=== PATIENT | female | born 1955 | race Caucasian/White ===

== ENCOUNTER → 2018-02-01 | Outpatient (CLI) | payer BC ==
[~2018-02-01] MED LIST: AMLODIPINE BESYL5 MG PO; BENICAR HCT 401 EAC1 PO; CRESTOR10 MG PO; CYCLOBENZAPRINE5 MG PO; FOLIC ACID1 MG PO; HUMIRA40 MG/0.1 INJ; LANSOPRAZOLE30 MG PO; METHOTREXATE2.5 MG PO; MONTELUKAST SOD10 MG PO; NABUMETONE500 MG PO; PATADAY2.5 ML OP; PREDNISONE1 MG PO; SULINDAC200 MG PO; TOPROL XL25 MG PO; TOPROL XL50 MG PO; TRIBENZOR 20-51 EACH PO; [UNRECOGNIZED DRUG - OTHER]; flexeril; prevacid PO
== END ==
LOC: RAD 14:10
PROVIDERS: ATTEND Family Medicine
DX: M79.672 Pain in left foot (principal); M25.475 Effusion, left foot; M79.89 Other specified soft tissue disorders
CPT/HCPCS: 93971

== ENCOUNTER → 2019-05-31 | Outpatient (CLI) | payer BC ==
[~2019-05-31] MED LIST changes: +DIOVAN HCT 3201 EACH PO; +LEFLUNOMIDE10 MG PO; +ONDANSETRON HCL4 MG PO; +PANTOPRAZOLE SO40 MG PO; +PIROXICAM20 MG PO; +PREDNISONE10 MG PO; +SPIRONOLACTONE25 MG PO; +ULTRAM50 MG PO
--- NOTE | 2019-05-31 11:14 | Diagnostic Imaging Report ---
Abdominal ultrasound Clinical History: Abdominal pain Discussion: Sonographic evaluation of the the abdomen is performed. The liver has normal size and measures 13.6 cm in length. The liver echotexture is normal, without focal mass. There is no intra or extrahepatic biliary dilatation. The common bile duct measures 3 mm. Echogenic nonshadowing material is seen in the gallbladder without evidence of gallbladder wall thickening, pericholecystic fluid, or sonographic Rehman's sign. The main portal vein diameter is normal, measuring 8 mm. The pancreatic head, body, and proximal tail demonstrate no abnormality. There is no ascites. The right and the left kidney measure 9.4 and 10.5 cm in length respectively and are normal in size. There is no renal mass, hydronephrosis, or shadowing renal calculus. The spleen measures 10.7 cm in length and is normal in echotexture. Segments of the inferior vena cava and aorta visualized demonstrate no abnormality. Impression: 1. Gallbladder sludge without sonographic evidence of acute cholecystitis. Otherwise, unremarkable abdominal ultrasound. Signed by: Dr. Karthikeyan Leung MD on 05/31/2019 11:11 AM
== END ==
LOC: US 07:50
PROVIDERS: ATTEND Family Medicine
DX: R10.11 Right upper quadrant pain (principal); K82.9 Disease of gallbladder, unspecified
CPT/HCPCS: 76700

== ENCOUNTER → 2019-06-22 | Day surgery (SDC) | payer BC ==
[2019-06-18 13:08] LABS: BASOPHILS # (AUTO) 0.1 (0.0-0.1); BASOPHILS % 0.4 % (0.0-1.0); EOSINOPHILS # (AUTO) 0.1 (0.0-0.4); EOSINOPHILS % 0.6 % (0.0-6.0); HEMATOCRIT 45.9 % (34.2-44.1); HEMOGLOBIN 15.3 g/dL (12.0-16.0); LYMPHOCYTES # (AUTO) 4.6 (1.0-3.2); MEAN CORPUSCULAR HEMOGLOBIN 31.1 pg (28-32); MEAN CORPUSCULAR HGB CONC 33.3 g/dL (31-35); MEAN CORPUSCULAR VOLUME 93.3 fL (81-99); MONOCYTES % 12.5 % (4.4-11.3); NEUTROPHILS # (AUTO) 9.5 (2.1-6.9); NEUTROPHILS % 58.1 % (38.7-80.0); PLATELET COUNT 305 x10e3/uL (140-360); RED BLOOD COUNT 4.92 x10e6/uL (3.6-5.1); RED CELL DISTRIBUTION WIDTH 13.9 % (11.7-14.4)
[2019-06-18 13:11] LABS: BILIRUBIN,URINE NEGATIVE (NEGATIVE); CLARITY,URINE SL CLOUDY (CLEAR); COLOR,URINE YELLOW (YELLOW); KETONES,URINE NEGATIVE (NEGATIVE); LEUKOCYTE ESTERASE ,URINE NEGATIVE (NEGATIVE); NITRITE,URINE NEGATIVE (NEGATIVE); PROTEIN,URINE DIPSTICK NEGATIVE (NEGATIVE); URINE UROBILINOGEN 0.2 mg/dL (0.2 - 1)
--- NOTE | 2019-06-18 13:12 | Diagnostic Imaging Report ---
EXAMINATION: CHEST 2 VIEWS INDICATION: Pre-operative COMPARISON: Chest radiograph of 12/28/2016 FINDINGS: LINES/TUBES:None LUNGS:The lungs are well-inflated. No focal consolidation or pulmonary edema. Subcentimeter right apical calcified granuloma, unchanged from 2017. PLEURA:No pleural effusion or pneumothorax. MEDIASTINUM:The cardiomediastinal silhouette appears normal in size and shape. BONES/SOFT TISSUES:No acute osseous injury. Mild degenerative changes of the visualized spine. ABDOMEN:No free air under the diaphragm. IMPRESSION: No focal pneumonia or pulmonary edema. Signed by: Jacques Adler MD on 06/18/2019 1:09 PM
[2019-06-18 13:32] LABS: ALBUMIN/GLOBULIN RATIO 1.3 (0.8-2.0); ANION GAP 16.1 mmol/L (8-16); CALCIUM 10.7 mg/dL (8.4-10.2); CREATININE, SERUM 1.06 mg/dL (0.57-1.11); POTASSIUM 3.1 mmol/L (3.5-5.1)
[~2019-06-22] MED LIST changes: +ACETAMINOPHEN 1000 MG/100 ML 100 ML IV ONE; +BUPIVACAINE 0.25%/EPI 30ML SDV INJ ONE; +DESFLURANE 240 ML BTL INH ONE; +DEXAMETHASONE SOD PHOS INJ 4 MG/ML VIAL ONE; +FENTANYL CITRATE/PF 100MCG/2 ML INJ ONE; +GLYCOPYRROLATE INJ 1MG/ 5 ML SYR ONE; +HYDROCODONE/APAP 7.5MG-325MG 1 EA TAB ONE; +KETOROLAC TROMETHAMINE 30 MG/ML VIAL ONE; +LIDOCAINE HCL 2% LOCAL INJ 5 ML SDV VIAL INJ ONE; +MEPERIDINE HCL INJ 25 MG/ML VIAL ONE; +MIDAZOLAM HCL 2 MG/2 ML VIAL ONE; +NEOSTIGMINE 5 MG/5ML SYR ONE; +ONDANSETRON HCL INJ 2MG/ML 2ML 2 MG/ML VIAL ONE; +PROPOFOL IV EMULSION 10 MG/ML 20 ML VIAL ONE; +SCOPOLAMINE 1.5 MG PATCH ONE
--- OUTSIDE RECORDS SUMMARY | 2019-06-22 08:28 | XMS REPORT ---
Author Author [facility] Address Unknown Phone Unavailable Care Team Providers Care [employer] Name Role Phone Refugio SAHNI Unavailable Unavailable STEPHAN NGUYEN Unavailable Unavailable Problems This patient has no known problems. Allergies, Adverse Reactions, Alerts This patient has no known allergies or adverse reactions. Medications This patient has no known medications. Results Test Description Test Time Test Comments Text Results Atomic Results Result Comments CHEST 2 VIEWS 2019-06-18 13:07:00 [facility] [address] [place] [address] Patient Name: KAITLIN FRASER MR #: [id number] : 1955 Age/Sex: 63/F Req #: [id number] Adm Physician: Ordered by: ELLA SAHNI MD Report #: [id number] Location: OR Room/Bed: Procedure: [id number] DX/CHEST 2 VIEWS Exam Date: Exam Time: REPORT STATUS: Signed EXAMINATION: CHEST 2 VIEWS INDICATION: Pre-operative COMPARISON: Chest radiograph of 12/28/2016 FINDINGS: LINES/TUBES:None LUNGS:The lungs are well-inflated. No focal consolidation or pulmonary edema. Subcentimeter right apical calcified granuloma, unchanged from 2017. PLEURA:No pleural effusion or pneumothorax. MEDIASTINUM:The cardiomediastinal silhouette appears normal in size and shape. BONES/SOFT TISSUES:No acute osseous injury. Mild degenerative changes of the visualized spine. ABDOMEN:No free air under the diaphragm. IMPRESSION: No focal pneumonia or pulmonary edema. Signed by: Tatiana Stock MD on 06/18/2019 1:09 PM Dictated By: TATIANA STOCK MD 130 Transcribed By: YESY on 06/18/19 130 COPY TO: ELLA SAHNI MD US ABDOMEN COMPLETE 2019-05-31 11:09:00 [place] [address] Patient Name: KAITLIN FRASER MR #: [id number] : 1955 Age/Sex: 63/F Req #: [id number] Adm Physician: Ordered by: NGUYNE ANDREW DO Report #: [id number] Location: Room/Bed: Procedure: [id number] US/US ABDOMEN COMPLETE Exam Date: 05/31/19 Exam Time: 0841 REPORT STATUS: Signed Abdominal ultrasound Clinical History: Abdominal pain Discussion: Sonographic evaluation of the the abdomen is performed. The liver has normal size and measures 13.6 cm in length. The liver echotexture is normal, without focal mass. There is no intra or extrahepatic biliary dilatation. The common bile duct measures 3 mm. Echogenic nonshadowing material is seen in the gallbladder without evidence of gallbladder wall thickening, pericholecystic fluid, or sonographic Rehman's sign. The main portal vein diameter is normal, measuring 8 mm. The pancreatic head, body, and proximal tail demonstrate no abnormality. There is no ascites. The right and the left kidney measure 9.4 and 10.5 cm in length respectively and are normal in size. There is no renal mass, hydronephrosis, or shadowing renal calculus. The spleen measures 10.7 cm in length and is normal in echotexture. Segments of the inferior vena cava and aorta visualized demonstrate no abnormality. Impression: 1. Gallbladder sludge without sonographic evidence of acute cholecystitis. Otherwise, unremarkable abdominal ultrasound. Signed by: Dr. Karthikeyan Leung MD on 05/31/2019 11:11 AM Dictated By: MALIA LEUNG MD 1111 Transcribed By: YESY on 05/31/19 1111 COPY TO: STEPHAN NGUYEN DO
[2019-06-22 14:15] VITALS: BP 105/60
--- NOTE | 2019-06-22 19:44 | Operative Report ---
DATE OF PROCEDURE: 06/22/2019 SURGEON: Wilfrid Salinas MD PREOPERATIVE DIAGNOSES: Cholecystitis and cholelithiasis plus epigastric pain, rule out peptic ulcer disease. POSTOPERATIVE DIAGNOSES: Cholecystitis, cholelithiasis, gastritis, and mild gastroesophageal reflux disease. OPERATION PERFORMED: Laparoscopic cholecystectomy and EGD. ANESTHESIA: General. COMPLICATIONS: None. ESTIMATED BLOOD LOSS: Minimal. DESCRIPTION OF PROCEDURE: With the patient lying in bed in the supine position, under good general endotracheal anesthesia, the abdomen was prepped with Betadine solution and draped in the usual manner. A Veress needle was introduced into the umbilicus and pneumoperitoneum was established without any difficulty. An 11 mm trocar was placed into the umbilicus and a 10 mm video laparoscope was placed into the intraabdominal cavity. Under direct vision, three 5 mm trocars were placed in the right subcostal region. Video laparoscopy at this point revealed some mild fatty infiltration of the liver and a gallbladder that was somewhat boggy and distended. Otherwise, the rest of the abdominal exploration was within normal limits. The peritoneum overlying the neck of the gallbladder was then opened and the cystic duct was identified. The cystic duct was followed to its junction with the common duct. The cystic duct was then circumferentially dissected away from the common duct, doubly clipped and divided. The cystic artery had an anterior and a posterior branch and both of these were individually clipped and divided. The gallbladder was then slowly and carefully taken off the liver bed using the cautery scissors and perfect hemostasis was ascertained. The gallbladder was then grasped through the umbilical port and removed without any difficulty. Video laparoscopy was then again carried out. The liver bed was found to be perfectly dry. All of the excess fluid was aspirated. The pneumoperitoneum was evacuated and all the trocars were removed under direct vision. The midline fascia at the umbilicus was then closed with a [id number] of 0 Vicryl. All layers were infiltrated on the way out with solution of 0.25% Marcaine. Subcutaneous tissue was approximated with 3-0 Vicryl and the skin was closed with subcuticular 5-0 Vicryl. Benzoin, Steri-Strips, and Band-Aids were applied. The sponge, lap, and needle count was correct. The patient tolerated this part of the procedure well. The flexible Olympus gastroscope was then introduced into the back of the throat and slowly and carefully advanced down the esophagus. In the lower part of the esophagus, there was some inflammatory changes consistent with some mild gastroesophageal reflux disease. There was no ulcerations or any sign of any Riley's mucosal changes. The stomach was then entered and insufflated. The entire stomach showed some linear gastritis that encompass the entire stomach. There was no definite ulcerations present. This is all an inflammatory process. The pylorus was then entered and the duodenum was inspected all the way down to the 3rd portion and the duodenum was found to be within normal limits. The scope was then slowly and carefully withdrawn. The patient tolerated the procedures well and returned to the recovery room in stable condition. MD YOVANI Ken/JEFF /[id number]
== END | disposition home or self-care (01) ==
LOC: OR 08:25
PROVIDERS: ATTEND Surgery
DX: K80.10 Calculus of gallbladder with chronic cholecystitis without obstruction (principal); K29.70 Gastritis, unspecified, without bleeding; K21.9 Gastro-esophageal reflux disease without esophagitis; K76.0 Fatty (change of) liver, not elsewhere classified; M06.9 Rheumatoid arthritis, unspecified; I10 Essential (primary) hypertension; Z88.6 Allergy status to analgesic agent; Z01.810 Encounter for preprocedural cardiovascular examination; Z01.812 Encounter for preprocedural laboratory examination; Z01.818 Encounter for other preprocedural examination; Z87.891 Personal history of nicotine dependence
CPT/HCPCS: 36415 ×2; 43235; 47562; 71046; 80053; 81003; 84132; 85025; 88304; 93005; C1766; J0131; J1100; J1885; J2001; J2175; J2250; J2405; J2704; J3010; J3490

== ENCOUNTER → 2019-11-06 | Day surgery (SDC) | payer BC ==
[2019-11-05 16:23] LABS: ANION GAP 17.4 mmol/L (8-16); BLOOD UREA NITROGEN 25 mg/dL (7-26); BUN/CREATININE RATIO 30 (6-25); CALCIUM 9.4 mg/dL (8.4-10.2); CARBON DIOXIDE 23 mmol/L (22-29); CHLORIDE 102 mmol/L (98-107); CREATININE, SERUM 0.84 mg/dL (0.57-1.11); EST GLOMERULAR FILTRATION RATE > 60 ML/MIN (60-); GLUCOSE 113 mg/dL (74-118); POTASSIUM 3.4 mmol/L (3.5-5.1); SODIUM 139 mmol/L (136-145)
[~2019-11-06] MED LIST changes: -ACETAMINOPHEN 1000 MG/100 ML 100 ML IV ONE; +ACETAMINOPHEN 1000 MG/100 ML IV ONE; +BACITRACIN 50,000 UNIT VIAL ONE; -BUPIVACAINE 0.25%/EPI 30ML SDV INJ ONE; +BUPIVACAINE HCL 0.5% INJ 30 ML VIAL INJ ONE; +CEFAZOLIN SOD 1 GM/NS 50ML 50 ML IV ONE; -DESFLURANE 240 ML BTL INH ONE; -GLYCOPYRROLATE INJ 1MG/ 5 ML SYR ONE; -HYDROCODONE/APAP 7.5MG-325MG 1 EA TAB ONE; -KETOROLAC TROMETHAMINE 30 MG/ML VIAL ONE; -LIDOCAINE HCL 2% LOCAL INJ 5 ML SDV VIAL INJ ONE; -MEPERIDINE HCL INJ 25 MG/ML VIAL ONE; -NEOSTIGMINE 5 MG/5ML SYR ONE; -PROPOFOL IV EMULSION 10 MG/ML 20 ML VIAL ONE; -SCOPOLAMINE 1.5 MG PATCH ONE; +SEVOFLURANE INHAL SOLN 250 ML PEN BTL ONE
--- NOTE | 2019-11-06 07:10 | NUR ---
SPIRITUAL CARE - Pre-Surgery Assessment: Pt in bed. Pt reported supportive attention from family and friends. Intervention: I provided pastoral presence, hospitality, sympathetic listening, and prayer. I acquainted pt with availability of terrazzo polisher while hospitalized. Outcome: Pt expressed appreciation for visit. No need for follow up indicated at this time. DELBERT Ericksonlain Spiritual Care Department O: [phone] Pager: [phone] ([phone] number calling from)
[2019-11-06 09:15] VITALS: BP 146/82
--- NOTE | 2019-11-08 13:29 | Operative Report ---
DATE OF PROCEDURE: 11/06/2019 SURGEON: Virginie Cabrera DPM PREOPERATIVE DIAGNOSIS: Right 2nd metatarsal fracture. POSTOPERATIVE DIAGNOSIS: Right 2nd metatarsal fracture. PLANNED PROCEDURE: Right open reduction and internal fixation of right 2nd metatarsal fracture. SURGEON: Dr. Usama DPM. HUNTING GUIDE: Virginie Cabrera DPM ANESTHESIA: General with a postoperative block consisting of 15 mL of 0.5% Marcaine plain. HEMOSTASIS: Pneumatic thigh tourniquet set at 350 mmHg for a total time of approximately 30 minutes. MATERIALS: One Synthes 4-hole plate, four nonlocking screws measuring 12 and 14 mm, 2-0 Vicryl, 3-0 Vicryl, and 4-0 Prolene. ESTIMATED BLOOD LOSS: Less than 10 mL. PATHOLOGY: None. PROCEDURE NOTE: The patient was seen in the preoperative waiting room, where the correct procedure and site was identified. The patient was brought into the operating room and placed on the operating table in supine position. General anesthesia was initiated. At this time, a well-padded pneumatic tourniquet was placed about the patient's right thigh. The right foot, ankle, and leg was scrubbed, prepped, and draped in the usual aseptic manner. The right foot, ankle, and leg was exsanguinated with an Esmarch bandage. A pneumatic thigh tourniquet was inflated to 350 mmHg for a total of approximately 30 minutes. Attention was directed to the dorsal aspect of the patient's right foot, where a 4 cm linear incision made directly over the 2nd metatarsophalangeal joint extending to the level of the midshaft. The incision was carried to the subcutaneous tissue them from deep or underling structures. All vital and neurovascular structures were identified, retracted medially and laterally, and all bleeders were cauterized or ligated as deemed necessary. Next, attention was directed to the neck of the 2nd metatarsal, where a bony callus formation was noted. Utilizing a rongeur, an osteotome and mallet, the bony callus was excised to allow for good visualization of the fracture site. Utilizing techniques of manipulation and distraction, the metatarsal fracture was reduced and temporarily fixated with olive wires into the 4-hole Synthes nonlocking plate and confirmed via intraoperative fluoroscopy. Next, utilizing techniques of AO fixation, drill holes were placed in each of the four holes of the plate, two proximal to the fracture site and two distal to the fracture site, and four screws measured between 12 and 14 mm were placed. Fixation site was stable. This was confirmed via intraoperative fluoroscopy. The incision site was then copiously irrigated with sterile saline. Capsule and deep tissue were reapproximated with 2-0 Vicryl, subcutaneous tissue with 3-0 Vicryl, and the skin was closed using a running interlocking stitch with 4-0 Prolene. The patient tolerated the procedure and anesthesia well. The patient was transferred to the postoperative recovery unit with vital signs stable and vascular status intact. The patient was monitored there for a short period of time before being sent home with the following written and oral instructions: 1. Keep the dressing clean, dry, and intact. 2. The patient is to remain nonweightbearing in a postop shoe to avoid any ambulation until being seen in the office. 3. The patient is given the office number and instructed to contact us if any problems arise. NICOLETTE Bustillo/JEFF /[id number]
== END | disposition home or self-care (01) ==
LOC: OR 05:40
PROVIDERS: ATTEND Podiatrist Foot & Ankle Surgery
DX: S92.321A Displaced fracture of second metatarsal bone, right foot, initial encounter for closed fracture (principal); M19.90 Unspecified osteoarthritis, unspecified site; I10 Essential (primary) hypertension; M54.9 Dorsalgia, unspecified; E78.5 Hyperlipidemia, unspecified; K21.9 Gastro-esophageal reflux disease without esophagitis; Z88.6 Allergy status to analgesic agent; Z01.810 Encounter for preprocedural cardiovascular examination; Z01.812 Encounter for preprocedural laboratory examination
CPT/HCPCS: 28485; 36415; 80048; 93005; C1713 ×4; J0131; J0690; J1100; J2250; J2405; J3010

== ENCOUNTER → 2020-03-26 | Outpatient (CLI) | payer BC ==
[~2020-03-26] MED LIST changes: -ACETAMINOPHEN 1000 MG/100 ML IV ONE; -BACITRACIN 50,000 UNIT VIAL ONE; -BUPIVACAINE HCL 0.5% INJ 30 ML VIAL INJ ONE; -CEFAZOLIN SOD 1 GM/NS 50ML 50 ML IV ONE; -DEXAMETHASONE SOD PHOS INJ 4 MG/ML VIAL ONE; -FENTANYL CITRATE/PF 100MCG/2 ML INJ ONE; -MIDAZOLAM HCL 2 MG/2 ML VIAL ONE; -ONDANSETRON HCL INJ 2MG/ML 2ML 2 MG/ML VIAL ONE; -SEVOFLURANE INHAL SOLN 250 ML PEN BTL ONE
== END ==
LOC: WCC 14:57
PROVIDERS: ATTEND Family Medicine Adult Medicine
DX: T81.89XA Other complications of procedures, not elsewhere classified, initial encounter (principal); M96.89 Other intraoperative and postprocedural complications and disorders of the musculoskeletal system; I82.491 Acute embolism and thrombosis of other specified deep vein of right lower extremity; I87.2 Venous insufficiency (chronic) (peripheral); R60.0 Localized edema; I10 Essential (primary) hypertension; M19.90 Unspecified osteoarthritis, unspecified site; M06.9 Rheumatoid arthritis, unspecified; K21.9 Gastro-esophageal reflux disease without esophagitis; E78.5 Hyperlipidemia, unspecified; M54.9 Dorsalgia, unspecified

== ENCOUNTER → 2020-03-28 | Outpatient (CLI) | payer BC ==
--- NOTE | 2020-03-28 11:33 | Diagnostic Imaging Report ---
EXAMINATION: FOOT RIGHT COMPLETE INDICATION: Right foot wound COMPARISON: None FINDINGS: Postoperative findings of ORIF of the distal second metatarsal with intact plate and screw construct. Alignment appears near-anatomic. No acute fracture or dislocation. Plantar calcaneal spur. The soft tissues appear radiographically unremarkable. IMPRESSION: Postoperative findings of ORIF of distal second metatarsal. No acute osseous injury. Signed by: Jacques Adler MD on 03/28/2020 11:30 AM
[2020-03-28 11:51] LABS: BASOPHILS # (AUTO) 0.1 (0.0-0.1); BASOPHILS % 0.4 % (0.0-1.0); EOSINOPHILS % 0.1 % (0.0-6.0); HEMOGLOBIN 13.7 g/dL (12.0-16.0); LYMPHOCYTES # (AUTO) 1.2 (1.0-3.2); LYMPHOCYTES % 10.4 % (18.0-39.1); MEAN CORPUSCULAR HEMOGLOBIN 30.7 pg (28-32); MEAN CORPUSCULAR HGB CONC 32.6 g/dL (31-35); MEAN CORPUSCULAR VOLUME 94.2 fL (81-99); MONOCYTES # (AUTO) 0.7 (0.2-0.8); MONOCYTES % 6.2 % (4.4-11.3); NEUTROPHILS # (AUTO) 9.8 (2.1-6.9); NEUTROPHILS % 82.1 % (38.7-80.0); PLATELET COUNT 288 x10e3/uL (140-360); RED BLOOD COUNT 4.46 x10e6/uL (3.6-5.1); RED CELL DISTRIBUTION WIDTH 13.8 % (11.7-14.4)
[2020-03-28 12:18] LABS: ALBUMIN 3.6 g/dL (3.5-5.0); ALBUMIN/GLOBULIN RATIO 1.3 (0.8-2.0); ANION GAP 13.5 mmol/L (8-16); CALCIUM 9.8 mg/dL (8.4-10.2); CREATININE, SERUM 0.96 mg/dL (0.57-1.11); POTASSIUM 3.5 mmol/L (3.5-5.1)
[2020-03-28 12:29] LABS: ERYTHROCYTE SEDIMENTATION RATE 11 mm/hr (0-20)
== END ==
LOC: RAD 10:48
PROVIDERS: ATTEND Family Medicine Adult Medicine
DX: T81.89XA Other complications of procedures, not elsewhere classified, initial encounter (principal)
CPT/HCPCS: 36415; 80053; 84134; 85025; 85651; 86140

== ENCOUNTER → 2020-04-03 | Outpatient (CLI) | payer BC | LOC: WCC 11:10 | PROVIDERS: ATTEND Family Medicine Adult Medicine | DX: T81.89XA Other complications of procedures, not elsewhere classified, initial encounter (principal); M96.89 Other intraoperative and postprocedural complications and disorders of the musculoskeletal system; I82.491 Acute embolism and thrombosis of other specified deep vein of right lower extremity; R60.0 Localized edema; I87.2 Venous insufficiency (chronic) (peripheral); I10 Essential (primary) hypertension; E78.5 Hyperlipidemia, unspecified; K21.9 Gastro-esophageal reflux disease without esophagitis; M06.9 Rheumatoid arthritis, unspecified; M19.90 Unspecified osteoarthritis, unspecified site; M54.9 Dorsalgia, unspecified | CPT/HCPCS: 87071; 87075; 87186; 87205 ==

== ENCOUNTER → 2020-04-10 | Outpatient (CLI) | payer BC | LOC: WCC 12:36 | PROVIDERS: ATTEND Family Medicine Adult Medicine | DX: T81.89XA Other complications of procedures, not elsewhere classified, initial encounter (principal); M96.89 Other intraoperative and postprocedural complications and disorders of the musculoskeletal system; I82.491 Acute embolism and thrombosis of other specified deep vein of right lower extremity; I87.2 Venous insufficiency (chronic) (peripheral); R60.0 Localized edema; B96.89 Other specified bacterial agents as the cause of diseases classified elsewhere; I10 Essential (primary) hypertension; K21.9 Gastro-esophageal reflux disease without esophagitis; M06.9 Rheumatoid arthritis, unspecified; E78.5 Hyperlipidemia, unspecified; M19.90 Unspecified osteoarthritis, unspecified site; M54.9 Dorsalgia, unspecified ==

== ENCOUNTER → 2020-04-14 | Outpatient (CLI) | payer BC | LOC: WCC 14:15 | PROVIDERS: ATTEND Family Medicine Adult Medicine | DX: T81.89XA Other complications of procedures, not elsewhere classified, initial encounter (principal); M96.89 Other intraoperative and postprocedural complications and disorders of the musculoskeletal system; I82.491 Acute embolism and thrombosis of other specified deep vein of right lower extremity; I87.2 Venous insufficiency (chronic) (peripheral); R60.0 Localized edema; I10 Essential (primary) hypertension; B96.89 Other specified bacterial agents as the cause of diseases classified elsewhere; M54.9 Dorsalgia, unspecified; M19.90 Unspecified osteoarthritis, unspecified site; M06.9 Rheumatoid arthritis, unspecified; K21.9 Gastro-esophageal reflux disease without esophagitis; E78.5 Hyperlipidemia, unspecified ==

== ENCOUNTER → 2020-04-17 | Outpatient (CLI) | payer BC | LOC: WCC 10:50 | PROVIDERS: ATTEND Family Medicine Adult Medicine | DX: T81.89XA Other complications of procedures, not elsewhere classified, initial encounter (principal); M96.89 Other intraoperative and postprocedural complications and disorders of the musculoskeletal system; I82.491 Acute embolism and thrombosis of other specified deep vein of right lower extremity; I87.2 Venous insufficiency (chronic) (peripheral); R60.0 Localized edema; I10 Essential (primary) hypertension; B96.89 Other specified bacterial agents as the cause of diseases classified elsewhere; E78.5 Hyperlipidemia, unspecified; M06.9 Rheumatoid arthritis, unspecified; K21.9 Gastro-esophageal reflux disease without esophagitis; M19.90 Unspecified osteoarthritis, unspecified site; M54.9 Dorsalgia, unspecified ==

== ENCOUNTER → 2020-05-01 | Outpatient (CLI) | payer BC | LOC: WCC 11:15 | PROVIDERS: ATTEND Family Medicine Adult Medicine | DX: T81.89XA Other complications of procedures, not elsewhere classified, initial encounter (principal); M96.89 Other intraoperative and postprocedural complications and disorders of the musculoskeletal system; I82.491 Acute embolism and thrombosis of other specified deep vein of right lower extremity; I87.2 Venous insufficiency (chronic) (peripheral); R60.0 Localized edema; I10 Essential (primary) hypertension; B96.89 Other specified bacterial agents as the cause of diseases classified elsewhere; E78.5 Hyperlipidemia, unspecified; M06.9 Rheumatoid arthritis, unspecified; K21.9 Gastro-esophageal reflux disease without esophagitis; M19.90 Unspecified osteoarthritis, unspecified site; M54.9 Dorsalgia, unspecified | CPT/HCPCS: 15275; 99213; Q4186 ==

== ENCOUNTER → 2020-05-13 | Outpatient (CLI) | payer BC | LOC: WCC 14:50 | PROVIDERS: ATTEND Family Medicine Adult Medicine | DX: T81.89XA Other complications of procedures, not elsewhere classified, initial encounter (principal); M96.89 Other intraoperative and postprocedural complications and disorders of the musculoskeletal system; I82.491 Acute embolism and thrombosis of other specified deep vein of right lower extremity; I87.2 Venous insufficiency (chronic) (peripheral); R60.0 Localized edema; I10 Essential (primary) hypertension; K21.9 Gastro-esophageal reflux disease without esophagitis; E78.5 Hyperlipidemia, unspecified; M06.9 Rheumatoid arthritis, unspecified; M19.90 Unspecified osteoarthritis, unspecified site; M54.9 Dorsalgia, unspecified ==

== ENCOUNTER → 2020-06-05 | Outpatient (CLI) | payer BC ==
--- NOTE | 2020-06-05 13:07 | Diagnostic Imaging Report ---
Exam: Lumbar spine MRI without IV contrast History: Low back pain Comparison studies: None Technique: Sagittal, axial coronal T2, sagittal T1, sagittal STIR, axial T2 FS and axially proton density.. Intravenous contrast: None Findings: Number of lumbar vertebral bodies: 5. Alignment: Normal lumbar lordosis. Mild lumbar levocurvature centered at L3-L4 as well as minimal Grade 1 degenerative anterolisthesis of L3 on L4 as well as left lateral listhesis of L3 on L4. Soft tissues: No T2 hyperintense inflammatory changes. Dorsal paraspinal muscles: Symmetric fatty-replaced atrophic changes with moderate atrophy of the lumbosacral junction Lower thoracic cord: Normal in signal and morphology. The tip of the conus is at 2. Cauda equina: No masses. No arachnoiditis. Vertebrae: No compression fractures, infection or neoplasm. Degenerative changes: L1-L2: Mildly degenerated disc. Patent canal and foramina. L2-L3: Mildly degenerated disc. Patent canal and foramina. L3-L4: Severely degenerated disc, greater on the right along the concavity of lumbar curvature with associated degenerative endplate changes with mild endplate edema. Grade 1 anterolisthesis of L3 on L4 with associated uncovered disc/disc bulge, superimposed 18 mm x 10 mm by 16mm (SI x AP x TV) left central disc extrusion which has migrated craniad posterior to the L3 vertebral body, thickened ligamentum flavum and bilateral facet arthrosis contribute to severe canal stenosis, severe right foraminal stenosis and mild left foraminal stenosis. Disc herniation abuts the exiting left L3 nerve root. L4-L5: Mildly degenerated disc. Asymmetric left disc bulge and facet arthrosis result in moderate left and mild right foraminal stenosis. No significant canal stenosis. L5-S1: Mildly degenerated disc. Asymmetric right disc bulge and facet arthrosis result in mild right foraminal stenosis. Patent canal and left foramen. IMPRESSION: 1. Multilevel disc degeneration, worse/severe at L3-L4 asymmetrically greater on the right along the concavity lumbar levocurvature. 2. Severe degenerative canal stenosis at L3-L4 where there is a large disc extrusion which also abuts the left L3 nerve root. 3. Foraminal stenosis, severe right L3-L4 moderate left at L4-5. 4. Multilevel facet arthrosis Signed by: Dr. Christopher Mills M.D. on 06/05/2020 1:04 PM
== END ==
LOC: MRI 09:38
PROVIDERS: ATTEND Internal Medicine Rheumatology
DX: M54.5 Low back pain (principal)
CPT/HCPCS: 72148

== ENCOUNTER → 2020-06-05 | Outpatient (CLI) | payer BC ==
[~2020-06-05] MED LIST changes: +LIDOCAINE/PRILOCAINE 2.5-2.5% KIT ONE; +TIZANIDINE HCL4 MG PO; +TRIAMCINOLONE ACET 0.1% CREAM 15 GM TUBE ONE; +XARELTO20 MG PO
== END ==
LOC: WCC 01:00
PROVIDERS: ATTEND Family Medicine Adult Medicine
DX: T81.89XA Other complications of procedures, not elsewhere classified, initial encounter (principal); M96.89 Other intraoperative and postprocedural complications and disorders of the musculoskeletal system; I82.491 Acute embolism and thrombosis of other specified deep vein of right lower extremity; R60.0 Localized edema; I87.2 Venous insufficiency (chronic) (peripheral); I10 Essential (primary) hypertension; M54.9 Dorsalgia, unspecified; M19.90 Unspecified osteoarthritis, unspecified site; M06.9 Rheumatoid arthritis, unspecified; K21.9 Gastro-esophageal reflux disease without esophagitis; E78.5 Hyperlipidemia, unspecified
CPT/HCPCS: 15275; 99213; Q4186

== ENCOUNTER → 2020-06-12 | Outpatient (CLI) | payer BC ==
[~2020-06-12] MED LIST changes: -LIDOCAINE/PRILOCAINE 2.5-2.5% KIT ONE; -TIZANIDINE HCL4 MG PO; -TRIAMCINOLONE ACET 0.1% CREAM 15 GM TUBE ONE; -XARELTO20 MG PO
== END ==
LOC: WCC 06-11 15:51
PROVIDERS: ATTEND Family Medicine Adult Medicine
DX: T81.89XA Other complications of procedures, not elsewhere classified, initial encounter (principal); M96.89 Other intraoperative and postprocedural complications and disorders of the musculoskeletal system; I82.491 Acute embolism and thrombosis of other specified deep vein of right lower extremity; R60.0 Localized edema; I87.2 Venous insufficiency (chronic) (peripheral); I10 Essential (primary) hypertension; E78.5 Hyperlipidemia, unspecified; M06.9 Rheumatoid arthritis, unspecified; K21.9 Gastro-esophageal reflux disease without esophagitis; M19.90 Unspecified osteoarthritis, unspecified site; M54.9 Dorsalgia, unspecified

== ENCOUNTER 2020-06-19 06:41 | Observation (INO) | payer BC, OTHER ==
--- NOTE | 2020-06-17 12:12 | Diagnostic Imaging Report ---
Exam: CHEST 2 VIEWS Date: 06/17/2020 12:05 PM INDICATION: ^[id number] ^[id number] ^PRE OP Comparison: 06/18/2019 FINDINGS: Lines/Tubes:None Lungs:The lungs are well inflated. No focal consolidation or pulmonary edema. There is a ill-defined nodular opacity in the periphery of the right upper lobe measuring approximately 2.1 x 1.2 cm, superimposed on the scapula. No correlation on the lateral view is identified. Pleura:No pleural effusion. No pneumothorax. Heart/Mediastinum:The cardiomediastinal silhouette is normal in size and contour. Bones/Soft Tissues: No acute osseous abnormality. Mild multilevel degenerative changes of the spine are noted. Upper abdomen: Unremarkable. IMPRESSION: 1. Negative for focal consolidation or evidence of pulmonary edema. 2. Nodular 2.1 cm density projecting in the right upper lobe laterally overlying the scapula probably relate to superimposed soft tissues, especially since no correlate is identified on lateral view. Finding was not present on x-ray dated 06/18/2019. If there is high clinical suspicion consider follow-up nonemergent radiographs versus cross-sectional imaging. Signed by: Reid De La Fuente MD on 06/17/2020 12:08 PM
[~2020-06-19] VITALS: Ht 162.6 cm; Wt 99.8 kg
[~2020-06-19 06:41] MED LIST changes: +TIZANIDINE HCL4 MG PO; +XARELTO20 MG PO
[2020-06-19] MEDS ORDERED: LIDOCAINE HCL (LTA) 4 ML SOLN ONE (07:12)
[2020-06-19] MEDS ORDERED: IBUPROFEN 800MG/ 200ML 200 ML IV ONE (07:12)
[2020-06-19] MEDS ORDERED: VANCOMYCIN 1GM/NS 250 ML 250 ML ONE (07:36)
[2020-06-19 08:26] LABS: INR 0.84; PROTHROMBIN TIME 11.9 seconds (11.9-14.5)
[2020-06-19] MEDS ORDERED: SCOPOLAMINE 1.5 MG PATCH ONE ×2 (08:47)
[2020-06-19] MEDS ORDERED: ACETAMINOPHEN 1000 MG/100 ML 100 ML IV ONE (08:50)
[2020-06-19] MEDS ORDERED: PROPOFOL IV EMULSION 100 ML IV ONE (08:51)
[2020-06-19 09:09] LABS: PARTIAL THROMBOPLASTIN TIME 17.1 seconds (23.8-35.5)
[2020-06-19] MEDS ORDERED: ACETAMINOPHEN 325 MG TAB PO PRN (10:15)
[2020-06-19] MEDS ORDERED: MORPHINE SULFATE 5 MG/ML VIAL IM PRN (10:15)
[2020-06-19] MEDS ORDERED: MAGNESIUM/ALUMINUM/SIMETHICONE 30 ML UDC PO PRN (10:15)
[2020-06-19] MEDS ORDERED: LACTATED RINGER'S 1,000 ML IV SCH (10:15)
[2020-06-19] MEDS ORDERED: TIZANIDINE HCL 4 MG TAB PO PRN (10:15)
[2020-06-19] MEDS ORDERED: PROMETHAZINE HCL (IM) 25 MG/ML VIAL IM PRN (10:15)
[2020-06-19] MEDS ORDERED: HYDROMORPHONE 2MG/ML 2 MG/ML ML IV PRN (10:15)
[2020-06-19] MEDS ORDERED: FENTANYL CITRATE/PF 100MCG/2 ML INJ ONE ×2 (10:34→12:40)
[2020-06-19 11:50] VITALS: BP 118/87
[2020-06-19 11:59] VITALS: BP 118/87
[2020-06-19 12:00] VITALS: BP 118/87
[2020-06-19] MEDS ORDERED: ROCURONIUM BROMIDE 10 MG/ML 5ML VIAL IV ONE (12:34)
[2020-06-19] MEDS ORDERED: PROPOFOL IV EMULSION 10 MG/ML 20 ML VIAL ONE (12:34)
[2020-06-19] MEDS ORDERED: DEXAMETHASONE SOD PHOS INJ 4 MG/ML VIAL ONE (12:34)
[2020-06-19] MEDS ORDERED: PHENYLEPHRINE HCL 1% 10 MG/ML VIAL ONE (12:34)
[2020-06-19] MEDS ORDERED: LIDOCAINE HCL 2% LOCAL INJ 5 ML SDV VIAL INJ ONE (12:34)
[2020-06-19] MEDS ORDERED: ONDANSETRON HCL INJ 2MG/ML 2ML 2 MG/ML VIAL ONE (12:34)
[2020-06-19] MEDS ORDERED: MIDAZOLAM HCL 2 MG/2 ML VIAL ONE (12:40)
--- NOTE | 2020-06-19 13:56 | Operative Report ---
DATE OF PROCEDURE: 06/19/2020 SURGEON: Mario Alberto Mcmahan MD PREOPERATIVE DIAGNOSES: Left L3-4 disk herniation with superior migration of extruded disk fragment and severe radiculopathy, M51.16. POSTOPERATIVE DIAGNOSES: Left L3-4 disk herniation with superior migration of extruded disk fragment and severe radiculopathy, M51.16. PROCEDURE: Left L3-4 laminotomy, medial facetectomy, and microsurgical resection of extruded disk fragment, [id number]. ANESTHESIA: General. INDICATIONS: The patient is a 64-year-old woman who presents with a very large left L3-4 disk herniation with superior migration of the extruded disk fragment towards L2 nerve root. There is complete collapse of the L3-4 disk space. She was taken to surgery for microsurgical decompression. PROCEDURE IN DETAIL: After induction of general anesthesia, the patient was placed on the operating table in prone position over Adan frame. Lumbar region was prepped and draped in sterile fashion. A preoperative x-ray was obtained. A small midline incision was created. Lumbar fascia was opened in left of midline and a subperiosteal dissection was carried out to expose the left-sided L3 and L4 lamina and medial aspect of the facet joint. The operating microscope was brought in. A high-speed drill equipped with marguerite bur was used to drill the inferior 2/3rd of lamina of L3 and the medial rim of the L3-L4 facet joint. The ligamentum flavum was resected and dural sac and L4 traversing nerve roots were exposed. The epidural veins lateral to the nerve root were bipolar coagulated and divided with micro scissors. The dura was slightly displaced medially. The underlying disk herniation came into view. A ball probe was passed into the ventral epidural space and the edge of the extruded disk material was retrieved. The disk was fragmented and desiccated. The superiorly extruded disk fragment was removed in multiple small pieces with a micro pituitary rongeur as additional disk was delivered out from the subligamentous compartment and from the epidural space with a ball probe. This maneuver was repeated numerous times until the dura and the L3 and L4 nerve roots were fully decompressed. The disk space itself was collapsed and was not entered. The wound was copiously irrigated with bacitracin solution. Meticulous hemostasis was secured. Retractor was removed. The platysma was closed with 3-0 Vicryl sutures. The skin was closed with 4-0 Monocryl sutures in subcuticular fashion. Steri-Strips and dressing were applied. The patient was awakened, extubated, and taken to postanesthesia care in stable condition. No intraoperative complications were encountered. ESTIMATED BLOOD LOSS: 10 mL. Mario Alberto Mcmahan MD PP/JEFF /[id number]
[2020-06-19 15:19] VITALS: BP 132/81
[2020-06-19] MEDS: ONDANSETRON HCL INJ 2MG/ML 2ML 2 MG/ML VIAL IV PRN (16:22)
[2020-06-19] MEDS: CARISOPRODOL 350 MG TAB PO PRN ×2 (17:33→21:45)
[2020-06-19] MEDS: OXYCODONE/ACETAMINOPHEN 5-325 1 EACH TABLET PO PRN ×2 (17:33→21:45)
--- NOTE | 2020-06-19 19:00 | NUR ---
RECEIVED PATIENT IN BEDSIDE SHIFT REPORT. PATIENT RESTING IN BED AT THIS TIME, PAIN WELL CONTROLLED, 11/12 AFTER RECEIVING MEDICATION RECENTLY. NO S&S OF DISTRESS NOTED. WALKER AT BEDSIDE, PATIENT VERBALIZED SHE WOULD NOT GET OUT OF BED WITHOUT STAFF ASSISTANCE. BED ALARM ON. BED LOCKED IN LOWEST POSITION, SIDE RAILS UPX2, CALL LIGHT IN REACH. PATIENT REFUSING SCD PUMPS.
[2020-06-19 20:00] VITALS: BP 131/89
[2020-06-19] MEDS ORDERED: SIMVASTATIN 20 MG TAB PO SCH (21:00)
[2020-06-19] MEDS ORDERED: ZOLPIDEM TARTRATE 5 MG TAB PO PRN (21:00)
[2020-06-19] MEDS ORDERED: RIVAROXABAN 20 MG TABLET PO SCH (21:00)
[2020-06-19] MEDS ORDERED: SODIUM CHLORIDE 0.9% 250ML 250 ML ONE (21:08)
[2020-06-19] MEDS: VANCOMYCIN 1GM/NS 250 ML 250 ML IV SCH (21:41)
[2020-06-19] MEDS: CEPACOL SORE THROAT LOZENGES PO PRN (21:58)
[2020-06-19 22:30] VITALS: BP 131/89
--- NOTE | 2020-06-19 22:45 | NUR ---
RECEIVED THE PT IN REPORT FROM ADRIANNA VARGHESE.
--- NOTE | 2020-06-19 23:13 | NUR ---
IV IS INFILTERATED.REMOVED IS CANNULA AND APPLIED PRESSURE DRESSING.IV TIP WAS INTACT.PT REFUSED TO START IV NOW.STATED THAT DO IN THE MORNING.HAS NAUSEA.MEDICATED WITH PHENERGAN 25 MG IM.AAOX3.DRESSING TO BACK IS DRY.BED LOCKED AND IN LOWEST POSITION.PHONE AND CALL LIGHT WITHIN REACH.
[2020-06-20 00:27] VITALS: BP 105/63
--- NOTE | 2020-06-20 00:42 | NUR ---
Received report from nurse.
[2020-06-20 04:00] VITALS: BP 119/67
--- NOTE | 2020-06-20 04:27 | NUR ---
Patient up to bathroom with 1 person asst and walker. Dressing to back dry and intact with no noted drainage.
[2020-06-20] MEDS: OXYCODONE/ACETAMINOPHEN 5-325 1 EACH TABLET PO PRN (04:59)
[2020-06-20] MEDS: CARISOPRODOL 350 MG TAB PO PRN (05:10)
[2020-06-20] MEDS: ONDANSETRON HCL INJ 2MG/ML 2ML 2 MG/ML VIAL IV PRN (05:10)
[2020-06-20] MEDS: CEPACOL SORE THROAT LOZENGES PO PRN (05:11)
--- NOTE | 2020-06-20 07:10 | NUR ---
RCD PT AT BED PT IS ALERT AND ORIENTED PT RESTING ON BED NO IV ACCESS BED LOW AND LOCKED CALL LIGHT IN REACH
--- NOTE | 2020-06-20 07:45 | NUR ---
PAGED AND NOTIFIED DR GARCES REGARDING LAST DOSE OF ANTIBIOTIC SINCE THE PT HAVE NO IV ACCESS HE SAID OK SEND PT TO HOME
[2020-06-20] MEDS ORDERED: NORCO 7.5-3251 EACH PO (07:47)
[2020-06-20 07:57] VITALS: BP 104/68
[2020-06-20] MEDS: VANCOMYCIN 1GM/NS 250 ML 250 ML IV SCH (08:00)
[2020-06-20 08:05] VITALS: BP 104/68
[2020-06-20] MEDS ORDERED: PANTOPRAZOLE SOD 40 MG TABEC PO SCH (09:00)
[2020-06-20] MEDS ORDERED: TRAMADOL HCL 50 MG TAB PO SCH (09:00)
[2020-06-20] MEDS ORDERED: SPIRONOLACTONE 25 MG TAB PO SCH (09:00)
[2020-06-20] MEDS ORDERED: ONDANSETRON HCL 4 MG ORAL DISINTEGRATING TAB PO SCH (09:00)
[2020-06-20] MEDS ORDERED: HYDROCHLOROTHIAZIDE 25 MG TAB PO SCH (09:00)
[2020-06-20] MEDS ORDERED: METOPROLOL SUCCINATE 25 MG TAB XL PO SCH (09:00)
[2020-06-20] MEDS ORDERED: NON-FORMULARY MEDICATION (Valsartan/Hydrochlorothiazide (Diovan Hct 320-25 Mg Tablet) 1 TA PO SCH (09:00)
[2020-06-20] MEDS ORDERED: PREDNISONE 10 MG TAB PO SCH (09:00)
[2020-06-20] MEDS ORDERED: VALSARTAN 160 MG TAB PO SCH (09:00)
[2020-06-20] MEDS ORDERED: METOPROLOL SUCCINATE 50 MG TAB XL PO SCH (09:00)
[2020-06-20] MEDS ORDERED: SIMVASTATIN 40 MG TAB PO SCH (09:00)
--- NOTE | 2020-06-20 09:30 | NUR ---
AC TO PATIENT SHE IS ALLERGIC TO CODEINE .SO SHE CANNOT TAKE NORCO ,PAGED AND NOTIFIED DR GARCES HE SAID ITS OK SHE CAN TAKE NORCO NOTIFIED THE PT
--- OUTSIDE RECORDS SUMMARY | 2020-06-20 10:20 | XMS REPORT | Continuity of Care Document ---
Author Author [facility] t Organization [facility] Address [address] [place] [address] Phone Unavailable Care Team Providers Care Vascular Surgery Physician Name Role Phone HERVE MCMAHAN Attphys Unavailable DARRION BARILLAS Attphys Unavailable Kelton LYNN Attphys Unavailable Refugio SAHNI Attphys Unavailable STEPHAN NGUYEN Attphys Unavailable Payers Payer Name Policy Type Policy Number Effective Date Expiration Date S ource Problems This patient has no known problems. Allergies, Adverse Reactions, Alerts Allergy Name Allergy Type Status Severity Reaction(s) Onset Date Inacti ve Date Treating Clinician Comments Source Penicillins DA Active U 2020-06-16 00:00:00 [facility] codeine DA Active MO 2011-08-08 00:00:00 [facility] Medications This patient has no known medications. Procedures This patient has no known procedures. Results Test Description Test Time Test Comments Results Result Comments Source CHEST 2 VIEWS 2020-06-17 12:05:00 [facility] [address] [address] Patient Name: KAITLIN FRASER MR #: [id number] : 1955 Age/Sex: 64/F Req #: [id number] Adm Physician: Ordered by: HERVE MCMAHAN MD Report #: [id number] Location: OR Room/Bed: Procedure: [id number] DX/CHEST 2 VIEWS Exam Date: 06/17/20 Exam Time: 1148 REPORT STATUS: Signed Exam: CHEST 2 VIEWS Date: 06/17/2020 12:05 PM INDICATION: [id number] PRE OP Comparison: 06/18/2019 FINDINGS: Lines/Tubes:None Lungs:The lungs are well inflated. No focal consolidation or pulmonary edema. There is a ill-defined nodular opacity in the periphery of the right upper lobe measuring approximately 2.1 x 1.2 cm, superimposed on the scapula. No correlation on the lateral view is identified. Pleura:No pleural effusion. No pneumothorax. Heart/Mediastinum:The cardiomediastinal silhouette is normal in size and contour. Bones/Soft Tissues: No acute osseous abnormality. Mild multilevel degenerative changes of the spine are noted. Upper abdomen: Unremarkable. IMPRESSION: 1. Negative for focal consolidation or evidence of pulmonary edema. 2. Nodular 2.1 cm density projecting in the right upper lobe laterally overlying the scapula probably relate to superimposed soft tissues, especially since no correlate is identified on lateral view. Finding was not present on x-ray dated 06/18/2019. If there is high clinical suspicion consider follow-up nonemergent radiographs versus cross-sectional imaging. Signed by: Eder De La Fuente MD on 06/17/2020 12:08 PM Dictated By: DEER DE LA FUENTE MD 07 Transcribed By: YESY on 06/17/201207 COPY TO: HERVE MCMAHAN MD - XR ABDOMEN AP 1 V 2020-06-16 14:43:00 FAX: Alejo Huston MD [phone] [place]: St: REG FAX: Herve Godinez MD [phone] Name: KAITLIN FRASER [facility] : 1955 Age/S: 64/F [address] Unit #: [id number] Loc: [place] [address] Phys: Alejo Sexton MD Acct: [id number] Dis Date: Status: REG [facility] PHONE #: [phone] Exam Date: 06/16/2020 1415 FAX #: [phone] Reason: POST IVC FILTER. EXAMS: CPT CODE: [id number] XR ABDOMEN AP 1 V 08510 HISTORY: POST IVC FILTER. TECHNIQUE: AP abdomen x-ray COMPARISON: None FINDINGS: Nonobstructive bowel gas pattern. No significant stool burden. No intra-abdominal mass effect. No abnormal calcifications are observed. Severe degenerative changes are present in the bilateral hips. Additionally there appears to be spondylolisthesis and scoliosis of the lumbar spine centered at L3-L4. Prior cholecystectomy. IVC filter is present. IMPRESSION: No radiographic evidence of acute intra-abdominal process. IVC filter is present and the superior and terminates at L2. Location: [facility] at 1443 Reported and signed by: Tacho Mendez MD CC: Alejo Sexton MD; Herve Mcmahan MD Technologist: Stephanie Nguyen RT(R); Lindsey Resendez RT(R) Trnscrd Date/Time/By: 06/16/2020 (0216) : By: [email or web address] Orig Print D/T: S: 06/16/2020 (5366) PAGE 1 Signed Report - US GUIDANCE [facility] ACCESS 2020-06-16 14:25:00 N rosalie: KAITLIN FRASER [facility] : 1955 Age/S: 64 / F [address] Unit #: [id number] Loc: [place] [address] Phys: Alejo Sexton MD Acct: [id number] Dis Date: Status: REG [facility] PHONE #: [phone] Exam Date: 06/16/2020 8116 FAX #: [phone] Reason: / EXAMS: CPT CODE: [id number] US GUIDANCE [facility] ACCESS 30494 Fluoro Time: DAP (Gy m2): Air Kerma (mGy): REASON FOR EXAM: DVT, lumbar surgery Exam order date: 06/16/2020 1:22 PM Location:[facility] PROCEDURE: 1. IVC Filter Placement 2. Ultrasound-guided placement of midline for IV access FINDINGS: After informed consent was obtained, the patient was brought to special procedures and placed supine on the table. Prior to the procedure, ultrasound was used to place a midline in the right upper arm. Multiple attempts to place IV line by nurses was not successful. The patient required moderate IV conscious sedation procedure due to her back pain. The right neck was prepped and draped in the usual sterile fashion. All maximal sterile barrier technique were followed. 2% local lidocaine was given. Under ultrasound guidance, a micropuncture needle was used to access right IJ. A guidewire was advanced into the IVC. Venogram showed normal size of the IVC measuring less than 28 mm. There is no clots identified. An IVC filter was deployed in the infrarenal portion of the IVC. The sheath was removed and hemostasis obtained. MEDICATIONS: 2 mg of Versed, 100 mcg fentanyl. COMPLICATIONS: None. Blood loss: Less than 5 mL Fluoroscopic time:36 sec Fluoroscopic dose:58 mGy IMPRESSION: Technically successful placement of IVC filter. at 1424 Reported and signed by: Alejo Sexton M.D. CC: Alejo Sexton MD; Herve Mcmahan MD Technologist: RT JOSSELINE Trnscb Date/Time: 06/16/2020 (1424) Meli Orig Print D/T: S: 06/16/2020 (2439) PAGE 1 Signed Report - INSERT IVC ENDO W/IMAG 2020-06-16 14:25:00 Na me: KAITLIN FRASER [facility] : 1955 Age/S: 64 / F [address] Unit #: [id number] Loc: [place] [address] Phys: Alejo Sexton MD Acct: [id number] Dis Date: Status: REG [facility] PHONE #: [phone] Exam Date: 06/16/2020 1339 FAX #: [phone] Reason: / EXAMS: CPT CODE: [id number] INSERT IVC ENDO W/IMAG 36143 Fluoro Time: 36 DAP (Gy m2): 26.96 Air Kerma (mGy): 58 REASON FOR EXAM: DVT, lumbar surgery Exam order date: 06/16/2020 1:22 PM Location:[facility] PROCEDURE: 1. IVC Filter Placement 2. Ultrasound-guided placement of midline for IV access FINDINGS: After informed consent was obtained, the patient was brought to special procedures and placed supine on the table. Prior to the procedure, ultrasound was used to place a midline in the right upper arm. Multiple attempts to place IV line by nurses was not successful. The patient required moderate IV conscious sedation procedure due to her back pain. The right neck was prepped and draped in the usual sterile fashion. All maximal sterile barrier technique were followed. 2% local lidocaine was given. Under ultrasound guidance, a micropuncture needle was used to access right IJ. A guidewire was advanced into the IVC. Venogram showed normal size of the IVC measuring less than 28 mm. There is no clots identified. An IVC filter was deployed in the infrarenal portion of the IVC. The sheath was removed and hemostasis obtained. MEDICATIONS: 2 mg of Versed, 100 mcg fentanyl. COMPLICATIONS: None. Blood loss: Less than 5 mL Fluoroscopic time:36 sec Fluoroscopic dose:58 mGy IMPRESSION: Technically successful placement of IVC filter. at 1423 Reported and signed by: Alejo Sexton M.D. CC: Alejo Sexton MD; Herve Mcmahan MD Technologist: SCOTT GARVIN RT Trnscb Date/Time: 06/16/2020 (6095) Meli Orig Print D/T: S: 06/16/2020 (6484) PAGE 1 Signed Report - US GUIDANCE [facility] ACCESS 2020-06-16 14:25:00 N rosalie: KAITLIN FRASER [facility] : 1955 Age/S: 64 / F [address] Unit #: [id number] Loc: [place] [address] Phys: Alejo Sexton MD Acct: [id number] Dis Date: Status: REG [facility] PHONE #: [phone] Exam Date: 06/16/2020 6544 FAX #: [phone] Reason: / EXAMS: CPT CODE: [id number] US GUIDANCE [facility] ACCESS [address]78 Fluoro Time: DAP (Gy m2): Air Kerma (mGy): REASON FOR EXAM: DVT, lumbar surgery Exam order date: 06/16/2020 1:22 PM Location:[facility] PROCEDURE: 1. IVC Filter Placement 2. Ultrasound-guided placement of midline for IV access FINDINGS: After informed consent was obtained, the patient was brought to special procedures and placed supine on the table. Prior to the procedure, ultrasound was used to place a midline in the right upper arm. Multiple attempts to place IV line by nurses was not successful. The patient required moderate IV conscious sedation procedure due to her back pain. The right neck was prepped and draped in the usual sterile fashion. All maximal sterile barrier technique were followed. 2% local lidocaine was given. Under ultrasound guidance, a micropuncture needle was used to access right IJ. A guidewire was advanced into the IVC. Venogram showed normal size of the IVC measuring less than 28 mm. There is no clots identified. An IVC filter was deployed in the infrarenal portion of the IVC. The sheath was removed and hemostasis obtained. MEDICATIONS: 2 mg of Versed, 100 mcg fentanyl. COMPLICATIONS: None. Blood loss: Less than 5 mL Fluoroscopic time:36 sec Fluoroscopic dose:58 mGy IMPRESSION: Technically successful placement of IVC filter. at 7381 Reported and signed by: Alejo Sexton M.D. CC: Alejo Sexton MD; Herve Mcmahan MD Technologist: SCOTT GARVIN RT Trnscb Date/Time: 06/16/2020 (4836) Meli Orig Print D/T: S: 06/16/2020 (5692) PAGE 1 Signed Report COVID 19 Asymptomatic IH AG 2020-06-16 10:23:00 Test Item COVID 19 Asymptomatic IH AG (test code = SHARDAPUIAG) NEGATIVE PROTHROMBIN [id number] 09:21:00* Test Item Value Reference Range Interpretation Comments PROTHROMBIN TIME PATIENT (test code = PTP) 22.7 seconds 9.0-14.0 H INTERNATIONAL NORMAL RATIO (test code = INR) 2.0 0.8-1.2 H The therapeutic range for oral anticoagulant therapy formost indications is an international normalized ratio (INR)of between 2.0 and 3.0. The recommended therapeutic INRrange for various clinical situations is listed below: Clinical Situation INR range Pulmonary e mbolism treatment (2.0-3.0)Venous thrombosis treatmentVenous thrombosis prophylaxis (high risk surgery)Prevention of systemic embolism from: Acute myocardial infarction Valvular heart disease Atrial fibrillation Mechanical prosthetic heart valves (2.5-3.5) IS PATIENT ON ANTICOAGULANTS? NTHROMBOPLASTIN TIME [id number] 09:21:00* Test Item Value Reference Range Interpretation Comments THROMBOPLASTIN TIME PARTIAL (test code = PTT) 31.7 seconds 23.0-37. 0 N IS PATIENT ON ANTICOAGULANTS? NCOMPREHENSIVE METABOLIC [id number] 09:19:00 * Test Item Value Reference Range Interpretation Comments SODIUM (test code = NA) 139 mmol/L 136-145 N POTASSIUM (test code = K) 3.6 mmol/L 3.5-5.1 N CHLORIDE (test code = CL) 101.0 mmol/L 98-107 N CARBON DIOXIDE (test code = CO2) 29.0 mmol/L 21-32 N ANION GAP (test code = GAP) 12.6 10-20 N GLUCOSE (test code = GLU) 81 mg/dL 74-106 N BLOOD UREA NITROGEN (test code = BUN) 43 mg/dL 7-18 H GLOMERULAR FILTRATION RATE (test code = GFR) 38 mL/min >=60 Estimated GFR by using Modified MDRD formula.Chronic kidney disease is defined as either kidney damageor GFR <60 mL/min/1.73 m2 for >3 months. CREATININE (test code = CREAT) 1.40 mg/dL 0.55-1.02 H Note change in reference range due to change in reagent. BUN/CREATININE RATIO (test code = BUN/CREA) 29.7 10-20 H TOTAL PROTEIN (test code = PROT) 6.7 gram/dL 6.4-8.2 N ALBUMIN (test code = ALB) 3.6 g/dL 3.4-5.0 N GLOBULIN (test code = GLOB) 3.1 gram/dL 2.7-4.2 N ALBUMIN/GLOBULIN RATIO (test code = A/G) 1.2 0.75-1.50 N CALCIUM (test code = CA) 10.0 mg/dL 8.5-10.1 N BILIRUBIN TOTAL (test code = BILT) 0.50 mg/dL 0.0-1.0 N SGOT/AST (test code = AST) 20 IUnit/L 15-37 N SGPT/ALT (test code = ALT) 46 IUnit/L 12-78 N ALKALINE PHOSPHATASE TOTAL (test code = ALKP) 54 IUnit/L 45-117 N Note change in reference range due to change in reagent. COMPREHENSIVE METABOLIC [id number] 09:13:00* Test Item Value Reference Range Interpretation Comments SODIUM (test code = NA) 139 mmol/L 136-145 N POTASSIUM (test code = K) 3.6 mmol/L 3.5-5.1 N CHLORIDE (test code = CL) 101.0 mmol/L 98-107 N CARBON DIOXIDE (test code = CO2) mmol/L 21-32 ANION GAP (test code = GAP) 10-20 GLUCOSE (test code = GLU) mg/dL 74-106 BLOOD UREA NITROGEN (test code = BUN) mg/dL 7-18 GLOMERULAR FILTRATION RATE (test code = GFR) mL/min >=60 CREATININE (test code = CREAT) mg/dL 0.55-1.02 BUN/CREATININE RATIO (test code = BUN/CREA) 10-20 TOTAL PROTEIN (test code = PROT) gram/dL 6.4-8.2 ALBUMIN (test code = ALB) g/dL 3.4-5.0 GLOBULIN (test code = GLOB) gram/dL 2.7-4.2 ALBUMIN/GLOBULIN RATIO (test code = A/G) 0.75-1.50 CALCIUM (test code = CA) mg/dL 8.5-10.1 BILIRUBIN TOTAL (test code = BILT) mg/dL 0.0-1.0 SGOT/AST (test code = AST) IUnit/L 15-37 SGPT/ALT (test code = ALT) IUnit/L 12-78 ALKALINE PHOSPHATASE TOTAL (test code = ALKP) IUnit/L 45-117 CBC W/AUTO [id number] 09:01:00* Test Item Value Reference Range Interpretation Comments WHITE BLOOD CELL (test code = WBC) 12.1 K/mm3 4.5-12.5 N RED BLOOD CELL (test code = RBC) 4.09 mill/mm3 3.7-5.2 N HEMOGLOBIN (test code = HGB) 13.2 gram/dL 11.5-15.5 N HEMATOCRIT (test code = HCT) 39.6 % 36.0-46.0 N MEAN CELL VOLUME (test code = MCV) 96.8 fL 80-98 N MEAN CELL HGB (test code = MCH) 32.3 picogram 27.0-33.0 N MEAN CELL HGB CONCETRATION (test code = MCHC) 33.3 gram/dL 33.0-36. 0 N RED CELL DISTRIBUTION WIDTH (test code = RDW) 14.3 % 11.6-16. 2 N RED CELL DISTRIBUTION WIDTH SD (test code = RDW-SD) 50.9 fL 37 .0-51.0 N PLATELET COUNT (test code = PLT) 279 K/mm3 150-450 N MEAN PLATELET VOLUME (test code = MPV) 9.4 fL 6.7-11.0 N NEUTROPHIL % (test code = NT%) 56.7 % 39.0-69.0 N IMMATURE GRANULOCYTE % (test code = IG%) 0.6 % 0.0-5.0 N LYMPHOCYTE % (test code = LY%) 30.9 % 25.0-55.0 N MONOCYTE % (test code = MO%) 11.0 % 0.0-10.0 H EOSINOPHIL % (test code = EO%) 0.5 % 0.0-5.0 N BASOPHIL % (test code = BA%) 0.3 % 0.0-1.0 N NUCLEATED RBC % (test code = NRBC%) 0.0 % 0-0 N NEUTROPHIL # (test code = NT#) 6.86 K/mm3 1.8-7.7 N IMMATURE GRANULOCYTE # (test code = IG#) 0.07 x10 3/uL 0-0.03 H LYMPHOCYTE # (test code = LY#) 3.74 K/mm3 1.0-5.0 N MONOCYTE # (test code = MO#) 1.33 K/mm3 0-0.8 H EOSINOPHIL # (test code = EO#) 0.06 K/mm3 0.0-0.5 N BASOPHIL # (test code = BA#) 0.04 K/mm3 0.0-0.2 N NUCLEATED RBC # (test code = NRBC#) 0.00 K/mm3 0.0-0.1 N MRI SPINE LUMBAR [id number] 12:50:[address] [address] Patient Name: KAITLIN FRASER MR #: [id number] : 1955 Age/Sex: 64/F Req #: [id number] Adm Physician: Ordered by: DARRION BARILLAS MD Report #: [id number] Location: MRI Room/Bed: Procedure: [id number] MRI/ MRI SPINE LUMBAR WO Exam Date: Exam Time: REPORT STATUS: Signed Exam: Lumbar spine MRI without IV contrast History: Low back pain Comparison studies: None Technique: Sagittal, axial coronal T2, sagittal T1, sagittal STIR, axial T2 FS and axially proton density.. Intravenous contrast: None Findings: Number of lumbar vertebral bodies: 5. Alignment: Normal lumbar lordo sis. Mild lumbar levocurvature centered at L3-L4 as well as minimal Grade 1 de generative anterolisthesis of L3 on L4 as well as left lateral listhesis of L3 on L4. Soft tissues: No T2 hyperintense inflammatory changes. Dorsal paraspinal muscles: Symmetric fatty-replaced atrophic changes with moderate at rophy of the lumbosacral junction Lower thoracic cord: Normal in signal and mo rphology. The tip of the conus is at 2. Cauda equina: No masses. No arachno iditis. Vertebrae: No compression fractures, infection or neoplasm. Degenerative changes: L1-L2: Mildly degenerated disc. Patent canal and f oramina. L2-L3: Mildly degenerated disc. Patent canal and foramina. L3-L4: Severely degenerated disc, greater on the right along the concavity of lumbar curvature with associated degenerative endplate changes with mild endp late edema. Grade 1 anterolisthesis of L3 on L4 with associated uncovered disc /disc bulge, superimposed 18 mm x 10 mm by 16mm (SI x AP x TV) left central di sc extrusion which has migrated craniad posterior to the L3 vertebral body, thickened ligamentum flavum and bilateral facet arthrosis contribute to severe canal stenosis, severe right foraminal stenosis and mild left foraminal steno sis. Disc herniation abuts the exiting left L3 nerve root. L4-L5: Mildly degenerated disc. Asymmetric left disc bulge and facet arthrosis result in mod erate left and mild right foraminal stenosis. No significant canal stenosis. L5-S1: Mildly degenerated disc. Asymmetric right disc bulge and facet arth rosis result in mild right foraminal stenosis. Patent canal and left foramen. IMPRESSION: 1. Multilevel disc degeneration, worse/severe at L3-L4 a symmetrically greater on the right along the concavity lumbar levocurvature. 2. Severe degenerative canal stenosis at L3-L4 where there is a large disc e xtrusion which also abuts the left L3 nerve root. 3. Foraminal stenosis, nacho re right L3-L4 moderate left at L4-5. 4. Multilevel facet arthrosis Sig ghassan by: Dr. Scott Dos Santos M.D. on 06/05/2020 1:04 PM Dictated By: SCOTT DOS SANTOS MD 1304 Trans cribed By: YESY on 06/05/20 1304 COPY TO: DARRION BARILLAS MD FOOT RIGHT [id number] 11:28:00 [address] [address] Patient Name: KAITLIN FRASER MR #: [id number] : 1955 Age/Sex: 64/F Req #: [id number] Adm Physician: Ordered by: AARON LYNN MD Report #: [id number] Location: [facility] Room/Bed: Procedure: [id number] DX/FOOT R IGHT COMPLETE Exam Date: 03/28/20 Exam Time: 1100 REPORT STATUS: Signed EXAMINATION: FOOT RIGHT COMPLETE INDICATION: Right foot wound COMPARISON: None FINDINGS: Postoperative findings of ORIF of the distal second m etatarsal with intact plate and screw construct. Alignment appears near-anatom ic. No acute fracture or dislocation. Plantar calcaneal spur. The soft tissues appear radiographically unremarkable. IMPRESSION: Postoperative findi ngs of ORIF of distal second metatarsal. No acute osseous injury. Sign ed by: Tatiana Stock MD on 03/28/2020 11:30 AM Dictated By: TATIANA STOCK MD E lectronically Signed By: TATIANA STOCK MD on 03/28/201129 Transcribed By: YESY on 03/28/20 113 COPY TO: AARON LYNN MD CHEST 2 [id number] 13:07:00 [address], [place], [place] [address] Patient Name: KAITLIN FRASER MR #: [id number] : 1955 Age/Sex: 63/F Req #: [id number] Adm Physician: Ordered by: ELLA SAHNI MD Report #: [id number] Location: OR Room/Bed: Procedure: 42 DX/CHEST 2 VIEWS Exam Date: Exam Time: REPORT STATUS: Signed EXAMINATION: CHEST 2 VIEWS INDICATION: Pre-operative COMPARISON: Chest radiograph of 12/28/2016 FINDINGS: LINES/TUBES:None LUNGS:The lungs are w ell-inflated. No focal consolidation or pulmonary edema. Subcentimeter right a pical calcified granuloma, unchanged from 2017. PLEURA:No pleural effusion or pneumothorax. MEDIASTINUM:The cardiomediastinal silhouette appears igor l in size and shape. BONES/SOFT TISSUES:No acute osseous injury. Mild degen erative changes of the visualized spine. ABDOMEN:No free air under the di aphragm. IMPRESSION: No focal pneumonia or pulmonary edema. Sign ed by: Tatiana Stock MD on 06/18/2019 1:09 PM Dictated By: TATIANA STOCK MD ectronically Signed By: TATIANA STOCK MD on 06/18/19 1304 Transcribed By: YESY on 06/18/19 1309 COPY TO: ELLA SAHNI MD ABDOMEN [id number] 11:09:00 [facility] [address] [address] Patient Name: KAITLIN FRASER MR #: [id number] : 1955 Age/Sex: 63/F Req #: [id number] Adm Physician: Ordered by: NGUYEN ANDREW DO Report #: [id number] Location: US Room/Bed: Procedure: [id number] US /US ABDOMEN COMPLETE Exam Date: 05/31/19 Exam Time: 840 REPORT STATUS: Signed Abdom inal ultrasound Clinical History: Abdominal pain Discussion: Son ographic evaluation of the the abdomen is performed. The liver has normal s ize and measures 13.6 cm in length. The liver echotexture is normal, without f ocal mass. There is no intra or extrahepatic biliary dilatation. The common bi le duct measures 3 mm. Echogenic nonshadowing material is seen in the gallblad greer without evidence of gallbladder wall thickening, pericholecystic fluid, or sonographic Rehman's sign. The main portal vein diameter is normal, measuring 8 mm. The pancreatic head, body, and proximal tail demonstrate no abnorma lity. There is no ascites. The right and the left kidney measure 9.4 and 10.5 cm in length respectively and are normal in size. There is no renal mass, hydronephrosis, or shadowing renal calculus. The spleen measures 10.7 cm in length and is normal in echotexture. Segments of the inferior vena cava and aorta visualized demonstrate no abnormality. Impression: 1. Gal lbladder sludge without sonographic evidence of acute cholecystitis. Otherwise , unremarkable abdominal ultrasound. Signed by: Dr. Karthikeyan Leung MD on 05/31 11:11 AM Dictated By: MALIA LEUNG MD 1111 Transcribed By: YESY on 05/31/19 1111 COPY TO: STEPHAN NGUYEN DO
--- NOTE | 2020-06-20 10:30 | NUR ---
PT WENT HOME IN SAFE CONDITION WITH HER DAUGHTER
[2020-06-30] MEDS ORDERED: ADALIMUMAB 40 MG SC SCH (09:00)
== END 2020-06-20 10:30 | disposition home or self-care (01) ==
LOC: OR 06:41 → PACU V 10:12 → MED/SURG 11:20
PROVIDERS: ADMIT Neurological Surgery; ATTEND Neurological Surgery
DX: M51.16 Intervertebral disc disorders with radiculopathy, lumbar region (principal); M51.06 Intervertebral disc disorders with myelopathy, lumbar region; G83.4 Cauda equina syndrome; I82.401 Acute embolism and thrombosis of unspecified deep veins of right lower extremity; M06.9 Rheumatoid arthritis, unspecified; I10 Essential (primary) hypertension; E78.5 Hyperlipidemia, unspecified; Z88.1 Allergy status to other antibiotic agents; Z88.5 Allergy status to narcotic agent; Z88.0 Allergy status to penicillin; Z88.8 Allergy status to other drugs, medicaments and biological substances; E66.3 Overweight; Z68.37 Body mass index [BMI] 37.0-37.9, adult; Z01.810 Encounter for preprocedural cardiovascular examination; Z01.818 Encounter for other preprocedural examination
CPT/HCPCS: 36415; 63047; 71046; 72020; 85610; 85730; 86850; 86900; 88304; 88311; 93005; G0378 ×2; J0131; J1100; J2001; J2370; J2405; J2550; J2704 ×2; J3010; J3370; J7050; J7512; Q0162; S0164; J2250

== ENCOUNTER → 2020-07-02 | Outpatient (RCR) | payer BC ==
[~2020-07-02] MED LIST changes: +NORCO 7.5-3251 EACH PO
== END ==
LOC: PT 11:04
PROVIDERS: ATTEND Neurological Surgery
DX: M51.16 Intervertebral disc disorders with radiculopathy, lumbar region (principal); M62.81 Muscle weakness (generalized)

== ENCOUNTER → 2020-07-03 | Outpatient (CLI) | payer BC, OTHER ==
[~2020-07-03] MED LIST changes: +BUPIVACAINE 0.5%/EPI 30 ML SDV INJ ONE; +LIDOCAINE/PRILOCAINE 2.5-2.5% KIT ONE; +THROMBIN FOR SOLN 5,000 UNIT VIAL ONE; +VANCOMYCIN HCL 1 GM VIAL ONE
== END ==
LOC: WCC 15:30
PROVIDERS: ATTEND Family Medicine Adult Medicine
DX: T81.89XA Other complications of procedures, not elsewhere classified, initial encounter (principal); M96.89 Other intraoperative and postprocedural complications and disorders of the musculoskeletal system; I82.491 Acute embolism and thrombosis of other specified deep vein of right lower extremity; I87.2 Venous insufficiency (chronic) (peripheral); R60.0 Localized edema; I10 Essential (primary) hypertension; E78.5 Hyperlipidemia, unspecified; M06.9 Rheumatoid arthritis, unspecified; K21.9 Gastro-esophageal reflux disease without esophagitis; M19.90 Unspecified osteoarthritis, unspecified site; M54.9 Dorsalgia, unspecified
CPT/HCPCS: 15275; 99213; J3370; Q4186

== ENCOUNTER → 2020-07-10 | Outpatient (CLI) | payer BC ==
[~2020-07-10] MED LIST changes: -BUPIVACAINE 0.5%/EPI 30 ML SDV INJ ONE; -LIDOCAINE/PRILOCAINE 2.5-2.5% KIT ONE; -THROMBIN FOR SOLN 5,000 UNIT VIAL ONE; -VANCOMYCIN HCL 1 GM VIAL ONE
== END ==
LOC: WCC 14:52
PROVIDERS: ATTEND Family Medicine Adult Medicine
DX: T81.89XA Other complications of procedures, not elsewhere classified, initial encounter (principal); M96.89 Other intraoperative and postprocedural complications and disorders of the musculoskeletal system; I82.491 Acute embolism and thrombosis of other specified deep vein of right lower extremity; I87.2 Venous insufficiency (chronic) (peripheral); R60.0 Localized edema; I10 Essential (primary) hypertension; M06.9 Rheumatoid arthritis, unspecified; E78.5 Hyperlipidemia, unspecified; K21.9 Gastro-esophageal reflux disease without esophagitis; M19.90 Unspecified osteoarthritis, unspecified site; M54.9 Dorsalgia, unspecified
CPT/HCPCS: 15275; 99213; Q4186

== ENCOUNTER → 2020-07-17 | Outpatient (CLI) | payer BC | LOC: WCC 13:29 | PROVIDERS: ATTEND Family Medicine Adult Medicine | DX: T81.89XA Other complications of procedures, not elsewhere classified, initial encounter (principal); M96.89 Other intraoperative and postprocedural complications and disorders of the musculoskeletal system; I82.491 Acute embolism and thrombosis of other specified deep vein of right lower extremity; I87.2 Venous insufficiency (chronic) (peripheral); R60.0 Localized edema; I10 Essential (primary) hypertension; M19.90 Unspecified osteoarthritis, unspecified site; E78.5 Hyperlipidemia, unspecified; M06.9 Rheumatoid arthritis, unspecified; K21.9 Gastro-esophageal reflux disease without esophagitis; M54.9 Dorsalgia, unspecified | CPT/HCPCS: 15275; 99213; Q4186 ==

== ENCOUNTER → 2020-07-24 | Outpatient (CLI) | payer BC | LOC: WCC 07-23 16:21 | PROVIDERS: ATTEND Family Medicine Adult Medicine | DX: T81.89XA Other complications of procedures, not elsewhere classified, initial encounter (principal); M96.89 Other intraoperative and postprocedural complications and disorders of the musculoskeletal system; I82.491 Acute embolism and thrombosis of other specified deep vein of right lower extremity; I87.2 Venous insufficiency (chronic) (peripheral); R60.0 Localized edema; I10 Essential (primary) hypertension; E78.5 Hyperlipidemia, unspecified; K21.9 Gastro-esophageal reflux disease without esophagitis; M06.9 Rheumatoid arthritis, unspecified; M19.90 Unspecified osteoarthritis, unspecified site; M54.9 Dorsalgia, unspecified | CPT/HCPCS: 15275; 99213; Q4186 ==

== ENCOUNTER 2020-07-30 10:00 | Outpatient (RCR) | payer BC, OTHER | END 2020-08-02 | LOC: PT 10:00 | PROVIDERS: ATTEND Neurological Surgery | DX: M51.16 Intervertebral disc disorders with radiculopathy, lumbar region (principal); M62.81 Muscle weakness (generalized) ==

== ENCOUNTER → 2020-07-31 | Outpatient (CLI) | payer BC | LOC: WCC 12:50 | PROVIDERS: ATTEND Family Medicine Adult Medicine | DX: T81.89XA Other complications of procedures, not elsewhere classified, initial encounter (principal); M96.89 Other intraoperative and postprocedural complications and disorders of the musculoskeletal system; I82.491 Acute embolism and thrombosis of other specified deep vein of right lower extremity; I87.2 Venous insufficiency (chronic) (peripheral); R60.0 Localized edema; I10 Essential (primary) hypertension; M06.9 Rheumatoid arthritis, unspecified; M19.90 Unspecified osteoarthritis, unspecified site; M54.9 Dorsalgia, unspecified; E78.5 Hyperlipidemia, unspecified; K21.9 Gastro-esophageal reflux disease without esophagitis ==

== ENCOUNTER 2020-08-06 10:55 | Outpatient (RCR) | payer BC | END 2020-09-01 | LOC: PT 10:55 | PROVIDERS: ATTEND Neurological Surgery | DX: M51.16 Intervertebral disc disorders with radiculopathy, lumbar region (principal); M62.81 Muscle weakness (generalized) ==

== ENCOUNTER → 2020-08-07 | Outpatient (CLI) | payer BC ==
[~2020-08-07] MED LIST changes: +LIDOCAINE VISC 2% SOLN 15 ML UDC ONE; +MINERAL OIL/PETROLAT/GLYCERI 6OZ BTL ONE
== END ==
LOC: WCC 14:57
PROVIDERS: ATTEND Family Medicine Adult Medicine
DX: T81.89XA Other complications of procedures, not elsewhere classified, initial encounter (principal); M96.89 Other intraoperative and postprocedural complications and disorders of the musculoskeletal system; I82.491 Acute embolism and thrombosis of other specified deep vein of right lower extremity; R60.0 Localized edema; I87.2 Venous insufficiency (chronic) (peripheral); I10 Essential (primary) hypertension; E78.5 Hyperlipidemia, unspecified; K21.9 Gastro-esophageal reflux disease without esophagitis; M06.9 Rheumatoid arthritis, unspecified; M19.90 Unspecified osteoarthritis, unspecified site; M54.9 Dorsalgia, unspecified

== ENCOUNTER → 2020-08-21 | Outpatient (CLI) | payer BC ==
[~2020-08-21] MED LIST changes: -LIDOCAINE VISC 2% SOLN 15 ML UDC ONE; -MINERAL OIL/PETROLAT/GLYCERI 6OZ BTL ONE
== END ==
LOC: WCC 14:51
PROVIDERS: ATTEND Family Medicine Adult Medicine
DX: T81.89XA Other complications of procedures, not elsewhere classified, initial encounter (principal); M96.89 Other intraoperative and postprocedural complications and disorders of the musculoskeletal system; I82.491 Acute embolism and thrombosis of other specified deep vein of right lower extremity; I87.2 Venous insufficiency (chronic) (peripheral); K21.9 Gastro-esophageal reflux disease without esophagitis; I10 Essential (primary) hypertension; R60.0 Localized edema; E78.5 Hyperlipidemia, unspecified; M06.9 Rheumatoid arthritis, unspecified; M19.90 Unspecified osteoarthritis, unspecified site

== ENCOUNTER → 2020-09-04 | Outpatient (CLI) | payer BC ==
[~2020-09-04] MED LIST changes: +FLUOCINONIDE 0.05% 1 EA/15 GM TUBE ONE; +LIDOCAINE VISC 2% SOLN 15 ML UDC ONE; +LIDOCAINE/PRILOCAINE 2.5-2.5% KIT ONE; +MINERAL OIL/PETROLAT/GLYCERI 6OZ BTL ONE; +MUPIROCIN 2% OINT 22 GM TUBE ONE; +TRIAMCINOLONE ACET 0.1% CREAM 15 GM TUBE ONE
== END ==
LOC: WCC 10:52
PROVIDERS: ATTEND Family Medicine Adult Medicine
DX: T81.89XA Other complications of procedures, not elsewhere classified, initial encounter (principal); M96.89 Other intraoperative and postprocedural complications and disorders of the musculoskeletal system; I87.312 Chronic venous hypertension (idiopathic) with ulcer of left lower extremity; L97.829 Non-pressure chronic ulcer of other part of left lower leg with unspecified severity; I82.491 Acute embolism and thrombosis of other specified deep vein of right lower extremity; R60.0 Localized edema; I87.2 Venous insufficiency (chronic) (peripheral); S80.822A Blister (nonthermal), left lower leg, initial encounter; I10 Essential (primary) hypertension; E78.5 Hyperlipidemia, unspecified; K21.9 Gastro-esophageal reflux disease without esophagitis; M06.9 Rheumatoid arthritis, unspecified; M19.90 Unspecified osteoarthritis, unspecified site; M54.9 Dorsalgia, unspecified

== ENCOUNTER 2020-09-05 16:55 | Outpatient (RCR) | payer BC ==
[~2020-09-05 16:55] MED LIST changes: -FLUOCINONIDE 0.05% 1 EA/15 GM TUBE ONE; -LIDOCAINE VISC 2% SOLN 15 ML UDC ONE; -LIDOCAINE/PRILOCAINE 2.5-2.5% KIT ONE; -MINERAL OIL/PETROLAT/GLYCERI 6OZ BTL ONE; -MUPIROCIN 2% OINT 22 GM TUBE ONE; -TRIAMCINOLONE ACET 0.1% CREAM 15 GM TUBE ONE
== END 2020-10-02 ==
LOC: PT 16:55
PROVIDERS: ATTEND Neurological Surgery
DX: M51.16 Intervertebral disc disorders with radiculopathy, lumbar region (principal); M62.81 Muscle weakness (generalized)

== ENCOUNTER → 2020-09-08 | Outpatient (CLI) | payer BC | LOC: WCC 11:33 | PROVIDERS: ATTEND Family Medicine Adult Medicine | DX: T81.89XA Other complications of procedures, not elsewhere classified, initial encounter (principal); M96.89 Other intraoperative and postprocedural complications and disorders of the musculoskeletal system; I87.312 Chronic venous hypertension (idiopathic) with ulcer of left lower extremity; L97.829 Non-pressure chronic ulcer of other part of left lower leg with unspecified severity; R60.0 Localized edema; S80.822A Blister (nonthermal), left lower leg, initial encounter; I87.2 Venous insufficiency (chronic) (peripheral); I82.491 Acute embolism and thrombosis of other specified deep vein of right lower extremity; I10 Essential (primary) hypertension; M54.9 Dorsalgia, unspecified; M19.90 Unspecified osteoarthritis, unspecified site; M06.9 Rheumatoid arthritis, unspecified; K21.9 Gastro-esophageal reflux disease without esophagitis; E78.5 Hyperlipidemia, unspecified | CPT/HCPCS: 10140 ==

== ENCOUNTER → 2020-09-11 | Outpatient (CLI) | payer BC | LOC: WCC 10:42 | PROVIDERS: ATTEND Family Medicine Adult Medicine | DX: T81.89XA Other complications of procedures, not elsewhere classified, initial encounter (principal); M96.89 Other intraoperative and postprocedural complications and disorders of the musculoskeletal system; I87.312 Chronic venous hypertension (idiopathic) with ulcer of left lower extremity; L97.821 Non-pressure chronic ulcer of other part of left lower leg limited to breakdown of skin; L97.829 Non-pressure chronic ulcer of other part of left lower leg with unspecified severity; I82.491 Acute embolism and thrombosis of other specified deep vein of right lower extremity; R60.0 Localized edema; I87.2 Venous insufficiency (chronic) (peripheral); S80.822A Blister (nonthermal), left lower leg, initial encounter; I10 Essential (primary) hypertension; E78.5 Hyperlipidemia, unspecified; K21.9 Gastro-esophageal reflux disease without esophagitis; M06.9 Rheumatoid arthritis, unspecified; M19.90 Unspecified osteoarthritis, unspecified site; M54.9 Dorsalgia, unspecified ==

== ENCOUNTER → 2020-09-15 | Outpatient (CLI) | payer BC | LOC: WCC 11:03 | PROVIDERS: ATTEND Family Medicine Adult Medicine | DX: T81.89XA Other complications of procedures, not elsewhere classified, initial encounter (principal); M96.89 Other intraoperative and postprocedural complications and disorders of the musculoskeletal system; I87.312 Chronic venous hypertension (idiopathic) with ulcer of left lower extremity; L97.821 Non-pressure chronic ulcer of other part of left lower leg limited to breakdown of skin; L97.829 Non-pressure chronic ulcer of other part of left lower leg with unspecified severity; I82.491 Acute embolism and thrombosis of other specified deep vein of right lower extremity; R60.0 Localized edema; I87.2 Venous insufficiency (chronic) (peripheral); I10 Essential (primary) hypertension; M54.9 Dorsalgia, unspecified; M19.90 Unspecified osteoarthritis, unspecified site; M06.9 Rheumatoid arthritis, unspecified; K21.9 Gastro-esophageal reflux disease without esophagitis; E78.5 Hyperlipidemia, unspecified ==

== ENCOUNTER → 2020-09-18 | Outpatient (CLI) | payer BC | LOC: WCC 11:11 | PROVIDERS: ATTEND Family Medicine Adult Medicine | DX: T81.89XA Other complications of procedures, not elsewhere classified, initial encounter (principal); M96.89 Other intraoperative and postprocedural complications and disorders of the musculoskeletal system; I82.491 Acute embolism and thrombosis of other specified deep vein of right lower extremity; L97.821 Non-pressure chronic ulcer of other part of left lower leg limited to breakdown of skin; L97.829 Non-pressure chronic ulcer of other part of left lower leg with unspecified severity; I87.2 Venous insufficiency (chronic) (peripheral); I87.312 Chronic venous hypertension (idiopathic) with ulcer of left lower extremity; R60.0 Localized edema; I10 Essential (primary) hypertension; M54.9 Dorsalgia, unspecified; M19.90 Unspecified osteoarthritis, unspecified site; M06.9 Rheumatoid arthritis, unspecified; K21.9 Gastro-esophageal reflux disease without esophagitis; E78.5 Hyperlipidemia, unspecified ==

== ENCOUNTER → 2020-10-23 | Outpatient (CLI) | payer BC | LOC: WCC 16:24 | PROVIDERS: ATTEND Family Medicine Adult Medicine | DX: T81.89XA Other complications of procedures, not elsewhere classified, initial encounter (principal); M96.89 Other intraoperative and postprocedural complications and disorders of the musculoskeletal system; I87.312 Chronic venous hypertension (idiopathic) with ulcer of left lower extremity; L97.821 Non-pressure chronic ulcer of other part of left lower leg limited to breakdown of skin; L97.829 Non-pressure chronic ulcer of other part of left lower leg with unspecified severity; I82.491 Acute embolism and thrombosis of other specified deep vein of right lower extremity; I87.2 Venous insufficiency (chronic) (peripheral); L30.8 Other specified dermatitis; L98.8 Other specified disorders of the skin and subcutaneous tissue; R23.8 Other skin changes; R60.0 Localized edema; E78.5 Hyperlipidemia, unspecified; I10 Essential (primary) hypertension; K21.9 Gastro-esophageal reflux disease without esophagitis; M06.9 Rheumatoid arthritis, unspecified; M19.90 Unspecified osteoarthritis, unspecified site; M54.9 Dorsalgia, unspecified ==

== ENCOUNTER → 2020-10-30 | Outpatient (CLI) | payer BC | LOC: WCC 13:50 | PROVIDERS: ATTEND Family Medicine Adult Medicine | DX: T81.89XA Other complications of procedures, not elsewhere classified, initial encounter (principal); M96.89 Other intraoperative and postprocedural complications and disorders of the musculoskeletal system; L97.821 Non-pressure chronic ulcer of other part of left lower leg limited to breakdown of skin; L97.829 Non-pressure chronic ulcer of other part of left lower leg with unspecified severity; I82.491 Acute embolism and thrombosis of other specified deep vein of right lower extremity; I87.312 Chronic venous hypertension (idiopathic) with ulcer of left lower extremity; I87.2 Venous insufficiency (chronic) (peripheral); L30.8 Other specified dermatitis; R23.8 Other skin changes; R60.0 Localized edema; L98.8 Other specified disorders of the skin and subcutaneous tissue; I10 Essential (primary) hypertension; E78.5 Hyperlipidemia, unspecified; K21.9 Gastro-esophageal reflux disease without esophagitis; M06.9 Rheumatoid arthritis, unspecified; M19.90 Unspecified osteoarthritis, unspecified site; M54.9 Dorsalgia, unspecified ==

== ENCOUNTER → 2020-11-06 | Outpatient (CLI) | payer BC ==
[~2020-11-06] MED LIST changes: +LIDOCAINE VISC 2% SOLN 15 ML UDC ONE
== END ==
LOC: WCC 14:25
PROVIDERS: ATTEND Family Medicine Adult Medicine
DX: T81.89XA Other complications of procedures, not elsewhere classified, initial encounter (principal); M96.89 Other intraoperative and postprocedural complications and disorders of the musculoskeletal system; I82.491 Acute embolism and thrombosis of other specified deep vein of right lower extremity; I87.2 Venous insufficiency (chronic) (peripheral); L98.8 Other specified disorders of the skin and subcutaneous tissue; L30.8 Other specified dermatitis; R23.8 Other skin changes; R60.0 Localized edema; I10 Essential (primary) hypertension; M06.9 Rheumatoid arthritis, unspecified; E78.5 Hyperlipidemia, unspecified; K21.9 Gastro-esophageal reflux disease without esophagitis; M19.90 Unspecified osteoarthritis, unspecified site; M54.9 Dorsalgia, unspecified

== ENCOUNTER → 2020-11-13 | Outpatient (CLI) | payer BC ==
[~2020-11-13] MED LIST changes: -LIDOCAINE VISC 2% SOLN 15 ML UDC ONE
== END ==
LOC: WCC 14:18
PROVIDERS: ATTEND Family Medicine Adult Medicine
DX: T81.89XA Other complications of procedures, not elsewhere classified, initial encounter (principal); M96.89 Other intraoperative and postprocedural complications and disorders of the musculoskeletal system; I82.491 Acute embolism and thrombosis of other specified deep vein of right lower extremity; I87.2 Venous insufficiency (chronic) (peripheral); R60.0 Localized edema; L30.8 Other specified dermatitis; R23.8 Other skin changes; L98.8 Other specified disorders of the skin and subcutaneous tissue; M06.9 Rheumatoid arthritis, unspecified; I10 Essential (primary) hypertension; E78.5 Hyperlipidemia, unspecified; K21.9 Gastro-esophageal reflux disease without esophagitis; M19.90 Unspecified osteoarthritis, unspecified site; M54.9 Dorsalgia, unspecified

== ENCOUNTER → 2020-12-04 | Outpatient (CLI) | payer BC | LOC: WCC 13:28 | PROVIDERS: ATTEND Family Medicine Adult Medicine | DX: T81.89XA Other complications of procedures, not elsewhere classified, initial encounter (principal); M96.89 Other intraoperative and postprocedural complications and disorders of the musculoskeletal system; I82.491 Acute embolism and thrombosis of other specified deep vein of right lower extremity; I87.2 Venous insufficiency (chronic) (peripheral); I89.0 Lymphedema, not elsewhere classified; S40.812A Abrasion of left upper arm, initial encounter; L98.8 Other specified disorders of the skin and subcutaneous tissue; L30.8 Other specified dermatitis; R23.8 Other skin changes; R60.0 Localized edema; E78.5 Hyperlipidemia, unspecified; I10 Essential (primary) hypertension; K21.9 Gastro-esophageal reflux disease without esophagitis; M06.9 Rheumatoid arthritis, unspecified; M19.90 Unspecified osteoarthritis, unspecified site; M54.9 Dorsalgia, unspecified; X58.XXXA Exposure to other specified factors, initial encounter ==

== ENCOUNTER → 2021-01-15 | Outpatient (CLI) | payer BC | LOC: WCC 13:04 | PROVIDERS: ATTEND Family Medicine Adult Medicine | DX: I87.332 Chronic venous hypertension (idiopathic) with ulcer and inflammation of left lower extremity (principal); M96.89 Other intraoperative and postprocedural complications and disorders of the musculoskeletal system; L97.821 Non-pressure chronic ulcer of other part of left lower leg limited to breakdown of skin; S81.802A Unspecified open wound, left lower leg, initial encounter; I82.491 Acute embolism and thrombosis of other specified deep vein of right lower extremity; I89.0 Lymphedema, not elsewhere classified; I87.2 Venous insufficiency (chronic) (peripheral); R60.0 Localized edema; S40.812A Abrasion of left upper arm, initial encounter; R23.8 Other skin changes; L98.8 Other specified disorders of the skin and subcutaneous tissue; E78.5 Hyperlipidemia, unspecified; I10 Essential (primary) hypertension; K21.9 Gastro-esophageal reflux disease without esophagitis; M06.9 Rheumatoid arthritis, unspecified; M19.90 Unspecified osteoarthritis, unspecified site; M54.9 Dorsalgia, unspecified; X58.XXXA Exposure to other specified factors, initial encounter ==

== ENCOUNTER → 2021-01-19 | Outpatient (CLI) | payer BC | LOC: WCC 16:17 | PROVIDERS: ATTEND Family Medicine Adult Medicine | DX: I87.332 Chronic venous hypertension (idiopathic) with ulcer and inflammation of left lower extremity (principal); M96.89 Other intraoperative and postprocedural complications and disorders of the musculoskeletal system; L97.821 Non-pressure chronic ulcer of other part of left lower leg limited to breakdown of skin; I82.491 Acute embolism and thrombosis of other specified deep vein of right lower extremity; S81.802A Unspecified open wound, left lower leg, initial encounter; I87.2 Venous insufficiency (chronic) (peripheral); I89.0 Lymphedema, not elsewhere classified; R60.0 Localized edema; S80.822A Blister (nonthermal), left lower leg, initial encounter; L98.8 Other specified disorders of the skin and subcutaneous tissue; I10 Essential (primary) hypertension; E78.5 Hyperlipidemia, unspecified; M06.9 Rheumatoid arthritis, unspecified; M54.9 Dorsalgia, unspecified; K21.9 Gastro-esophageal reflux disease without esophagitis; M19.90 Unspecified osteoarthritis, unspecified site; X58.XXXA Exposure to other specified factors, initial encounter ==

== ENCOUNTER → 2021-01-22 | Outpatient (CLI) | payer BC | LOC: WCC 10:58 | PROVIDERS: ATTEND Family Medicine Adult Medicine | DX: I87.332 Chronic venous hypertension (idiopathic) with ulcer and inflammation of left lower extremity (principal); M96.89 Other intraoperative and postprocedural complications and disorders of the musculoskeletal system; L97.821 Non-pressure chronic ulcer of other part of left lower leg limited to breakdown of skin; I82.491 Acute embolism and thrombosis of other specified deep vein of right lower extremity; I89.0 Lymphedema, not elsewhere classified; S81.802A Unspecified open wound, left lower leg, initial encounter; R60.0 Localized edema; L98.8 Other specified disorders of the skin and subcutaneous tissue; I87.2 Venous insufficiency (chronic) (peripheral); S80.822A Blister (nonthermal), left lower leg, initial encounter; I10 Essential (primary) hypertension; E78.5 Hyperlipidemia, unspecified; M06.9 Rheumatoid arthritis, unspecified; K21.9 Gastro-esophageal reflux disease without esophagitis; M19.90 Unspecified osteoarthritis, unspecified site; M54.9 Dorsalgia, unspecified; X58.XXXA Exposure to other specified factors, initial encounter ==

== ENCOUNTER → 2021-01-29 | Outpatient (CLI) | payer BC | LOC: WCC 14:51 | PROVIDERS: ATTEND Family Medicine Adult Medicine | DX: I87.332 Chronic venous hypertension (idiopathic) with ulcer and inflammation of left lower extremity (principal); M96.89 Other intraoperative and postprocedural complications and disorders of the musculoskeletal system; L97.821 Non-pressure chronic ulcer of other part of left lower leg limited to breakdown of skin; I82.491 Acute embolism and thrombosis of other specified deep vein of right lower extremity; I89.0 Lymphedema, not elsewhere classified; I87.2 Venous insufficiency (chronic) (peripheral); L98.8 Other specified disorders of the skin and subcutaneous tissue; R60.0 Localized edema; S80.822A Blister (nonthermal), left lower leg, initial encounter; E78.5 Hyperlipidemia, unspecified; I10 Essential (primary) hypertension; K21.9 Gastro-esophageal reflux disease without esophagitis; M06.9 Rheumatoid arthritis, unspecified; M19.90 Unspecified osteoarthritis, unspecified site; M54.9 Dorsalgia, unspecified; X58.XXXA Exposure to other specified factors, initial encounter ==

== ENCOUNTER → 2021-06-02 | Outpatient (RCR) | payer BC | LOC: PT 05-05 14:04 | PROVIDERS: ATTEND Neurological Surgery | DX: M51.16 Intervertebral disc disorders with radiculopathy, lumbar region (principal) ==

== ENCOUNTER 2021-06-18 13:00 | Outpatient (RCR) | payer BC | END 2021-07-02 | LOC: PT 13:00 | PROVIDERS: ATTEND Neurological Surgery | DX: M51.16 Intervertebral disc disorders with radiculopathy, lumbar region (principal) ==

== ENCOUNTER 2023-03-24 05:32 | Inpatient (IN) | payer BC, MEDICARE ==
[~2023-03-24] VITALS: Ht 167.6 cm; Wt 107.1 kg
[2023-03-24] VITALS (7 sets, daily range): BP systolic 124–131; BP diastolic 62–69; PULSE 74–99; RESP 17–20; TEMP 99.2–100.7; O2SAT 96–98
[~2023-03-24 05:32] MED LIST changes: +DOXAZOSIN MESYLA4 MG PO; +NEURONTIN100 MG PO
[2023-03-24] MEDS ORDERED: ONDANSETRON HCL INJ 2MG/ML 2ML 2 MG/ML VIAL IV STA (05:54)
[2023-03-24] MEDS ORDERED: SODIUM CHLORIDE 0.9% 1000ML 1,000 ML IV STA (06:12)
[2023-03-24 06:15] LABS: BASOPHILS % 0.2 % (0.0-1.0); EOSINOPHILS % 0.2 % (0.0-6.0); HEMATOCRIT 35.8 % (34.2-44.1); HEMOGLOBIN 11.1 g/dL (12.0-16.0); LYMPHOCYTES # (AUTO) 0.9 (1.0-3.2); LYMPHOCYTES % 7.2 % (18.0-39.1); MEAN CORPUSCULAR HEMOGLOBIN 27.4 pg (28-32); MEAN CORPUSCULAR VOLUME 88.4 fL (81-99); MONOCYTES # (AUTO) 1.1 (0.2-0.8); MONOCYTES % 9.2 % (4.4-11.3); NEUTROPHILS % 82.8 % (38.7-80.0); PLATELET COUNT 180 x10e3/uL (140-360); RED BLOOD COUNT 4.05 x10e6/uL (3.6-5.1); RED CELL DISTRIBUTION WIDTH 17.2 % (11.7-14.4)
[2023-03-24] MEDS ORDERED: Morphine 4mg INJECTION 4 MG/ML INJ IV STA (06:22)
[2023-03-24 06:34] LABS: ALBUMIN 2.9 g/dL (3.5-5.0); ALBUMIN/GLOBULIN RATIO 0.9 (0.8-2.0); ANION GAP 14.3 mmol/L (8-16); CALCIUM 9.6 mg/dL (8.4-10.2); CREATININE, SERUM 1.21 mg/dL (0.57-1.11)
[2023-03-24 06:36] LABS: CLARITY,URINE CLEAR (CLEAR); COLOR,URINE YELLOW (YELLOW); KETONES,URINE NEGATIVE (NEGATIVE); LEUKOCYTE ESTERASE ,URINE NEGATIVE (NEGATIVE); NITRITE,URINE NEGATIVE (NEGATIVE); PROTEIN,URINE DIPSTICK 2+ (NEGATIVE); URINE UROBILINOGEN 0.2 mg/dL (0.2 - 1)
[2023-03-24 06:36] LABS: POTASSIUM 2.3 mmol/L (3.5-5.1)
[2023-03-24] MEDS ORDERED: IOPAMIDOL 370 MG/ML 100 ML INFUS..BTL INJ ONE (06:40)
[2023-03-24 07:02] LABS: BACTERIA,URINE FEW /HPF; EPITHELIAL CELLS,URINE FEW /LPF; WBC,URINE (MAN) 0-5 /HPF (0-5)
[2023-03-24] MEDS ORDERED: SODIUM CHLORIDE 0.9% 1000ML 1,000 ML ONE (08:14)
[2023-03-24] MEDS ORDERED: MAGNESIUM SULFATE 2GM/50ML 50 ML IV ONE (08:15)
[2023-03-24] MEDS: D5.45%NS/KCL 20MEQ 1,000 ML IV SCH ×2 (08:45→20:03)
[2023-03-24] MEDS: METRONIDAZOLE 500MG/NS 100ML 100 ML IV SCH ×3 (08:55→21:41)
[2023-03-24] MEDS: LEVOFLOXACIN 500MG/D5W 100ML 100 ML IV SCH (09:08)
[2023-03-24] MEDS: POTASSIUM CHLORIDE 10MEQ/100ML 100 ML IV SCH ×7 (10:58→21:57)
[2023-03-24] MEDS ORDERED: PREDNISONE 20 MG TAB ONE (13:42)
[2023-03-24] MEDS ORDERED: ACETAMINOPHEN 325 MG TAB ONE (13:43)
[2023-03-24] MEDS ORDERED: ACETAMINOPHEN 325 MG TAB PO ONE (13:45)
[2023-03-24] MEDS ORDERED: ONDANSETRON HCL INJ 2MG/ML 2ML 2 MG/ML VIAL ONE (13:47)
[2023-03-24] MEDS: PREDNISONE 20 MG TAB PO SCH (13:55)
[2023-03-24] MEDS ORDERED: TRAMADOL HCL 50 MG TAB PO ONE (14:00)
[2023-03-24 14:03] LABS: INR 1.86; PROTHROMBIN TIME 21.9 seconds (11.9-14.5)
[2023-03-24 14:04] LABS: PARTIAL THROMBOPLASTIN TIME 29.1 seconds (23.8-35.5)
[2023-03-24 14:06] LABS: ANION GAP 14.9 mmol/L (8-16); CALCIUM 9.3 mg/dL (8.4-10.2); CREATININE, SERUM 1.09 mg/dL (0.57-1.11)
[2023-03-24 14:07] LABS: POTASSIUM 2.9 mmol/L (3.5-5.1)
[2023-03-24] MEDS ORDERED: PLAQUENIL200 MG PO (17:49)
[2023-03-24] MEDS ORDERED: XARELTO20 MG PO (17:49)
[2023-03-24] MEDS ORDERED: ACETAMINOPHEN 325 MG TAB PO PRN (19:45)
[2023-03-24] MEDS: TRAMADOL HCL 50 MG TAB PO PRN (21:43)
[2023-03-24] MEDS: ONDANSETRON HCL INJ 2MG/ML 2ML 2 MG/ML VIAL IV PRN (21:43)
[2023-03-24] MEDS ORDERED: DOXAZOSIN MESYLATE 2 MG TAB PO SCH (22:00)
[2023-03-24] MEDS ORDERED: RIVAROXABAN 20 MG TABLET PO SCH (22:00)
[2023-03-25] VITALS (8 sets, daily range): BP systolic 120–135; BP diastolic 68–81; PULSE 80–101; RESP 17–21; TEMP 98.5–99.7; O2SAT 93–98
[2023-03-25] MEDS: SODIUM CHLORIDE 0.9% 1000ML 1,000 ML IV SCH ×2 (00:30→07:33)
[2023-03-25] MEDS: POTASSIUM CHLORIDE 10MEQ/100ML 100 ML IV SCH (01:03)
[2023-03-25] MEDS: METRONIDAZOLE 500MG/NS 100ML 100 ML IV SCH ×5 (02:00→23:40)
[2023-03-25] MEDS: D5.45%NS/KCL 20MEQ 1,000 ML IV SCH (05:11)
[2023-03-25 05:42] LABS: BASOPHILS % 0.1 % (0.0-1.0); EOSINOPHILS % 0.1 % (0.0-6.0); HEMOGLOBIN 10.1 g/dL (12.0-16.0); LYMPHOCYTES # (AUTO) 1.2 (1.0-3.2); LYMPHOCYTES % 8.2 % (18.0-39.1); MEAN CORPUSCULAR HEMOGLOBIN 27.3 pg (28-32); MEAN CORPUSCULAR HGB CONC 30.6 g/dL (31-35); MEAN CORPUSCULAR VOLUME 89.2 fL (81-99); MONOCYTES # (AUTO) 1.6 (0.2-0.8); MONOCYTES % 10.7 % (4.4-11.3); NEUTROPHILS # (AUTO) 12.1 (2.1-6.9); NEUTROPHILS % 80.4 % (38.7-80.0); PLATELET COUNT 204 x10e3/uL (140-360); RED CELL DISTRIBUTION WIDTH 17.2 % (11.7-14.4)
[2023-03-25] MEDS: TRAMADOL HCL 50 MG TAB PO PRN ×2 (06:03→20:37)
[2023-03-25] MEDS: ONDANSETRON HCL INJ 2MG/ML 2ML 2 MG/ML VIAL IV PRN ×2 (06:03→17:08)
[2023-03-25 06:10] LABS: ALBUMIN 2.3 g/dL (3.5-5.0); ALBUMIN/GLOBULIN RATIO 0.7 (0.8-2.0); ANION GAP 16.5 mmol/L (8-16); CALCIUM 8.4 mg/dL (8.4-10.2); CREATININE, SERUM 0.97 mg/dL (0.57-1.11); POTASSIUM 3.5 mmol/L (3.5-5.1)
[2023-03-25] MEDS ORDERED: SIMVASTATIN 40 MG TAB PO SCH (09:00)
[2023-03-25] MEDS: LEVOFLOXACIN 500MG/D5W 100ML 100 ML IV SCH (09:27)
[2023-03-25] MEDS: PANTOPRAZOLE SOD 40 MG TABEC PO SCH (09:27)
[2023-03-25] MEDS: PREDNISONE 20 MG TAB PO SCH (09:27)
[2023-03-25] MEDS: METOPROLOL SUCCINATE 50 MG TAB XL PO SCH (09:28)
[2023-03-25] MEDS: CRESTOR 10MG PO SCH (09:28)
[2023-03-25 10:05] LABS: FERRITIN 198.04 ng/mL (4.63-204.00)
[2023-03-25] MEDS ORDERED: CYANOCOBALAMIN INJ 1,000 MCG/ML VIAL IM SCH (14:00)
[2023-03-25] MEDS: DOXAZOSIN MESYLATE 2 MG TAB PO SCH (20:36)
[2023-03-25] MEDS: RIVAROXABAN 20 MG TABLET PO SCH (20:37)
[2023-03-26] VITALS (8 sets, daily range): BP systolic 132–150; BP diastolic 69–84; PULSE 76–100; RESP 16–20; TEMP 98.1–99.3; O2SAT 94–100
[2023-03-26] MEDS: SODIUM CHLORIDE 0.9% 1000ML 1,000 ML IV SCH ×2 (01:43→09:34)
[2023-03-26] MEDS: ONDANSETRON HCL INJ 2MG/ML 2ML 2 MG/ML VIAL IV PRN ×3 (06:13→20:37)
[2023-03-26] MEDS: METRONIDAZOLE 500MG/NS 100ML 100 ML IV SCH (06:13)
[2023-03-26] MEDS: TRAMADOL HCL 50 MG TAB PO PRN ×3 (06:25→20:39)
[2023-03-26 08:46] LABS: BASOPHILS % 0.3 % (0.0-1.0); EOSINOPHILS # (AUTO) 0.1 (0.0-0.4); EOSINOPHILS % 0.4 % (0.0-6.0); HEMATOCRIT 33.9 % (34.2-44.1); LYMPHOCYTES # (AUTO) 1.6 (1.0-3.2); LYMPHOCYTES % 13.9 % (18.0-39.1); MEAN CORPUSCULAR HGB CONC 29.5 g/dL (31-35); MEAN CORPUSCULAR VOLUME 91.6 fL (81-99); MONOCYTES # (AUTO) 0.9 (0.2-0.8); MONOCYTES % 7.5 % (4.4-11.3); NEUTROPHILS # (AUTO) 8.7 (2.1-6.9); NEUTROPHILS % 77.3 % (38.7-80.0); PLATELET COUNT 200 x10e3/uL (140-360); RED CELL DISTRIBUTION WIDTH 17.2 % (11.7-14.4)
[2023-03-26 09:05] LABS: ALBUMIN 2.4 g/dL (3.5-5.0); ALBUMIN/GLOBULIN RATIO 0.7 (0.8-2.0); ANION GAP 12.5 mmol/L (8-16); CALCIUM 8.4 mg/dL (8.4-10.2); CREATININE, SERUM 0.93 mg/dL (0.57-1.11); MAGNESIUM 1.9 MG/DL (1.3-2.1); POTASSIUM 3.5 mmol/L (3.5-5.1)
[2023-03-26] MEDS: PANTOPRAZOLE SOD 40 MG TABEC PO SCH (09:33)
[2023-03-26] MEDS: PREDNISONE 20 MG TAB PO SCH (09:33)
[2023-03-26] MEDS: METOPROLOL SUCCINATE 50 MG TAB XL PO SCH (09:33)
[2023-03-26] MEDS: CRESTOR 10MG PO SCH (09:33)
[2023-03-26] MEDS: LEVOFLOXACIN 500MG/D5W 100ML 100 ML IV SCH (09:34)
[2023-03-26] MEDS: MEROPENEM 1 GM in SODIUM CHLORIDE 0.9% 100 ML IV SCH ×2 (12:45→20:37)
[2023-03-26] MEDS: RIVAROXABAN 20 MG TABLET PO SCH (20:38)
[2023-03-26] MEDS: DOXAZOSIN MESYLATE 2 MG TAB PO SCH (20:38)
[2023-03-27] VITALS (9 sets, daily range): BP systolic 127–165; BP diastolic 61–85; PULSE 77–95; RESP 18–20; TEMP 97.9–98.7; O2SAT 94–99
[2023-03-27] MEDS: MEROPENEM 1 GM in SODIUM CHLORIDE 0.9% 100 ML IV SCH ×3 (06:02→22:23)
[2023-03-27] MEDS: TRAMADOL HCL 50 MG TAB PO PRN ×2 (06:05→22:23)
[2023-03-27] MEDS: ONDANSETRON HCL INJ 2MG/ML 2ML 2 MG/ML VIAL IV PRN ×2 (06:10→22:23)
[2023-03-27 06:58] LABS: BASOPHILS % 0.4 % (0.0-1.0); EOSINOPHILS % 0.4 % (0.0-6.0); HEMOGLOBIN 10.2 g/dL (12.0-16.0); LYMPHOCYTES # (AUTO) 1.8 (1.0-3.2); LYMPHOCYTES % 21.9 % (18.0-39.1); MEAN CORPUSCULAR HEMOGLOBIN 27.1 pg (28-32); MEAN CORPUSCULAR VOLUME 90.4 fL (81-99); MONOCYTES # (AUTO) 0.6 (0.2-0.8); MONOCYTES % 7.6 % (4.4-11.3); NEUTROPHILS # (AUTO) 5.7 (2.1-6.9); NEUTROPHILS % 68.7 % (38.7-80.0); PLATELET COUNT 187 x10e3/uL (140-360); RED BLOOD COUNT 3.76 x10e6/uL (3.6-5.1); RED CELL DISTRIBUTION WIDTH 17.4 % (11.7-14.4)
[2023-03-27 07:38] LABS: ANION GAP 16.5 mmol/L (8-16); CALCIUM 8.6 mg/dL (8.4-10.2); CREATININE, SERUM 0.85 mg/dL (0.57-1.11); POTASSIUM 3.5 mmol/L (3.5-5.1)
[2023-03-27] MEDS: PREDNISONE 20 MG TAB PO SCH (09:12)
[2023-03-27] MEDS: METOPROLOL SUCCINATE 50 MG TAB XL PO SCH (09:13)
[2023-03-27] MEDS: CRESTOR 10MG PO SCH (09:13)
[2023-03-27] MEDS: RIVAROXABAN 20 MG TABLET PO SCH (20:21)
[2023-03-27] MEDS: DOXAZOSIN MESYLATE 2 MG TAB PO SCH (20:22)
[2023-03-28] VITALS: BP 162/75; PULSE 72; RESP 20; TEMP 98.6; O2SAT 95
[2023-03-28] MEDS: MEROPENEM 1 GM in SODIUM CHLORIDE 0.9% 100 ML IV SCH ×2 (06:26→13:25)
[2023-03-28] MEDS: ONDANSETRON HCL INJ 2MG/ML 2ML 2 MG/ML VIAL IV PRN (06:34)
[2023-03-28] MEDS: TRAMADOL HCL 50 MG TAB PO PRN (06:35)
[2023-03-28 07:47] VITALS: BP 160/78; PULSE 95; RESP 17; TEMP 97.8; O2SAT 99
[2023-03-28 08:03] VITALS: BP 160/78; PULSE 95; RESP 17; TEMP 97.8; O2SAT 99
[2023-03-28] MEDS ORDERED: VITAMIN B-121000 MCG PO (08:35)
[2023-03-28] MEDS: CRESTOR 10MG PO SCH (09:09)
[2023-03-28] MEDS: PREDNISONE 20 MG TAB PO SCH (09:09)
[2023-03-28] MEDS: METOPROLOL SUCCINATE 50 MG TAB XL PO SCH (09:10)
[2023-03-28] MEDS ORDERED: CLONIDINE HCL 0.1 MG TAB PO ONE (09:15)
[2023-03-28 11:16] VITALS: BP 119/65; PULSE 89; RESP 18; TEMP 98.3; O2SAT 98
== END 2023-03-28 15:02 | disposition home or self-care (01) | DRG 871 ==
LOC: ER 05:37 → ERHOLD 08:45 → MED/SURG2 17:18
PROVIDERS: ADMIT Internal Medicine; ATTEND Internal Medicine
PROC: 02HV33Z Insertion of Infusion Device into Superior Vena Cava, Percutaneous Approach (ICD-10-PCS; principal; 2023-03-27)
DX: A41.51 Sepsis due to Escherichia coli [E. coli] (principal); J96.01 Acute respiratory failure with hypoxia; N17.9 Acute kidney failure, unspecified; N39.0 Urinary tract infection, site not specified; N12 Tubulo-interstitial nephritis, not specified as acute or chronic; Z16.12 Extended spectrum beta lactamase (ESBL) resistance; Z20.822 Contact with and (suspected) exposure to COVID-19; I25.10 Atherosclerotic heart disease of native coronary artery without angina pectoris; I10 Essential (primary) hypertension; K21.9 Gastro-esophageal reflux disease without esophagitis; E78.5 Hyperlipidemia, unspecified; M54.9 Dorsalgia, unspecified; G89.29 Other chronic pain; M19.90 Unspecified osteoarthritis, unspecified site; R00.0 Tachycardia, unspecified; E66.9 Obesity, unspecified; M06.9 Rheumatoid arthritis, unspecified; G62.9 Polyneuropathy, unspecified; D64.9 Anemia, unspecified; E87.6 Hypokalemia; Z68.38 Body mass index [BMI] 38.0-38.9, adult; B96.29 Other Escherichia coli [E. coli] as the cause of diseases classified elsewhere; I48.0 Paroxysmal atrial fibrillation; E86.0 Dehydration; Z86.718 Personal history of other venous thrombosis and embolism; Z86.711 Personal history of pulmonary embolism; Z90.49 Acquired absence of other specified parts of digestive tract; Z87.891 Personal history of nicotine dependence; Z88.0 Allergy status to penicillin; Z79.01 Long term (current) use of anticoagulants
CPT/HCPCS: 36415; 36569; 51700; 71045; 74177; 80048; 80053; 81001; 82550; 82607; 82728; 83540; 83605; 83690; 83735; 83880; 84443; 84466; 84484; 85025; 85379; 85610; 85730; 87040; 87071; 87086; 87186; 87205; 93005; 94799; 99285; J1956; J2185; J2270; J2405; J3420; J3475; J3480; J7030; J7050; J7512; Q9967

== ENCOUNTER 2025-07-06 14:47 | Inpatient (IN) | payer MEDICARE, BC ==
[~2025-07-06] VITALS: Ht 162.6 cm; Wt 95.3 kg
[~2025-07-06 14:47] MED LIST changes: +ACYCLOVIR200 MG PO; +PLAQUENIL200 MG PO; +VITAMIN B-121000 MCG PO
[2025-07-06 16:23] VITALS: RESP 18; TEMP 98.9
[2025-07-06] MEDS ORDERED: Morphine 4mg INJECTION 4 MG/ML INJ IV STA (16:51)
[2025-07-06 17:14] LABS: BASOPHILS % 0.3 % (0.0-1.0); EOSINOPHILS % 0.0 % (0.0-6.0); LYMPHOCYTES % 9.0 % (18.0-39.1); MONOCYTES % 9.2 % (4.4-11.3); NEUTROPHILS % 80.9 % (38.7-80.0); RED CELL DISTRIBUTION WIDTH 14.6 % (11.7-14.4)
[2025-07-06 17:18] LABS: INR 1.55
[2025-07-06 17:29] LABS: EST GLOMERULAR FILTRATION RATE 72.0 ML/MIN (>=60)
[2025-07-06] MEDS: ONDANSETRON HCL INJ 2MG/ML 2ML 2 MG/ML VIAL IV STA (17:33)
[2025-07-06] MEDS: SODIUM CHLORIDE 0.9% 500ML 500 ML IV ONE (17:33)
[2025-07-06] MEDS: HYDROCODONE/APAP 7.5MG-325MG 1 EA TAB PO ONE (18:27)
[2025-07-06] MEDS: GABAPENTIN 300 MG CAP PO STA (20:11)
[2025-07-06 21:46] VITALS: PULSE 93
[2025-07-06] MEDS: SODIUM CHLORIDE 0.9% 1000ML 1,000 ML IV SCH (21:53)
[2025-07-06] MEDS: Morphine 4mg INJECTION 4 MG/ML INJ IV PRN (21:54)
[2025-07-06] MEDS: ONDANSETRON HCL INJ 2MG/ML 2ML 2 MG/ML VIAL IV PRN (21:54)
[2025-07-06 22:30] VITALS: BP 153/81; PULSE 79; RESP 20; TEMP 97.5; O2SAT 95
[2025-07-07] MEDS ORDERED: HYDROCHLOROTHIA25 MG PO (01:02)
[2025-07-07 04:00] VITALS: BP 153/75; PULSE 80; RESP 18; TEMP 98.2; O2SAT 98
[2025-07-07 09:01] VITALS: BP 147/75; PULSE 92; RESP 19; TEMP 98.8; O2SAT 95
[2025-07-07 12:35] LABS: BASOPHILS % 0.4 % (0.0-1.0); EOSINOPHILS % 0.6 % (0.0-6.0); LYMPHOCYTES % 34.6 % (18.0-39.1); MONOCYTES % 13.5 % (4.4-11.3); NEUTROPHILS % 50.2 % (38.7-80.0); RED CELL DISTRIBUTION WIDTH 14.6 % (11.7-14.4)
[2025-07-07 12:47] VITALS: BP 152/75; PULSE 90; RESP 18; TEMP 98.7; O2SAT 94
[2025-07-07] MEDS: ACYCLOVIR 200 MG CAP PO SCH (13:00)
[2025-07-07] MEDS: METHOCARBAMOL 500 MG TAB PO ONE (14:54)
[2025-07-07 16:49] VITALS: BP 143/63; PULSE 94; RESP 19; TEMP 98.3; O2SAT 96
[2025-07-07 19:54] VITALS: BP 123/78; PULSE 92; RESP 18; TEMP 99.3; O2SAT 95
[2025-07-07] MEDS: PREDNISONE 20 MG TAB PO SCH (20:15)
[2025-07-07] MEDS: GABAPENTIN 300 MG CAP PO SCH (20:15)
[2025-07-07] MEDS ORDERED: GABAPENTIN 100 MG CAP PO SCH (21:00)
[2025-07-07 21:12] VITALS: BP 123/78; PULSE 92; RESP 18; TEMP 99.3; O2SAT 95
[2025-07-08] VITALS (7 sets, daily range): BP systolic 112–176; BP diastolic 60–88; PULSE 75–99; RESP 16–20; TEMP 97.6–100.7; O2SAT 95–99
[2025-07-08] MEDS: RIVAROXABAN 20 MG TABLET PO SCH (08:46)
[2025-07-08] MEDS: HYDROCHLOROTHIAZIDE 25 MG TAB PO SCH (08:46)
[2025-07-08] MEDS: METHOCARBAMOL 500 MG TAB PO SCH (08:46)
[2025-07-08] MEDS: METOPROLOL SUCCINATE 25 MG TAB XL PO SCH (08:48)
[2025-07-08] MEDS: SIMVASTATIN 20 MG TAB PO SCH (08:49)
[2025-07-08] MEDS: HYDROXYCHLOROQUINE SULFATE 200 MG TAB PO SCH (08:50)
[2025-07-08] MEDS: DOXAZOSIN MESYLATE 2 MG TAB PO SCH (08:51)
[2025-07-08] MEDS: VALSARTAN 160 MG TAB PO SCH (08:51)
[2025-07-08] MEDS: AMLODIPINE BESYLATE 5 MG TAB PO SCH (08:51)
[2025-07-08] MEDS ORDERED: SPIRONOLACTONE 25 MG TAB PO SCH (09:00)
[2025-07-08] MEDS ORDERED: PREDNISONE 20 MG TAB PO SCH (09:00)
[2025-07-08] MEDS ORDERED: PREDNISONE 10 MG TAB PO SCH (09:00)
[2025-07-08] MEDS ORDERED: HYDROCHLOROTHIAZIDE 25 MG TAB PO SCH (09:00)
[2025-07-08] MEDS ORDERED: PANTOPRAZOLE SOD 40 MG TABEC PO SCH (09:00)
[2025-07-08 10:01] LABS: EST GLOMERULAR FILTRATION RATE 95.0 ML/MIN (>=60)
[2025-07-08] MEDS: HYDROMORPHONE 1MG/1ML INJ IV PRN (12:10)
[2025-07-08] MEDS: HYDROCODONE/APAP 5MG-325MG TAB PO PRN (16:17)
[2025-07-08] MEDS: HYDRALAZINE HCL 20 MG/ML VIAL IV PRN (16:18)
[2025-07-09] VITALS (7 sets, daily range): BP systolic 118–158; BP diastolic 54–82; PULSE 74–99; RESP 16–20; TEMP 97.8–99; O2SAT 97
[2025-07-09 04:19] LABS: LEUKOCYTE ESTERASE ,URINE NEGATIVE (NEGATIVE); PROTEIN,URINE DIPSTICK NEGATIVE (NEGATIVE); URINE UROBILINOGEN 0.2 mg/dL (0.2 - 1)
[2025-07-09 04:52] LABS: WBC,URINE (MAN) 0-5 /HPF (0-5)
[2025-07-09 04:53] LABS: EPITHELIAL CELLS,URINE RARE /LPF
[2025-07-09] MEDS: RIVAROXABAN 10 MG TABLET PO SCH (08:25)
[2025-07-09] MEDS: HYDROMORPHONE 1MG/1ML INJ IV PRN (12:54)
[2025-07-09] MEDS: METHOCARBAMOL 750 MG TAB PO PRN (12:54)
[2025-07-09] MEDS: GABAPENTIN 300 MG CAP PO SCH (15:07)
[2025-07-09] MEDS: Vancomycin IV 1 GM in SODIUM CHLORIDE 0.9% 250ML 250 ML IV SCH (18:00)
[2025-07-09] MEDS: HYDROCODONE/APAP 10MG-325MG TAB PO PRN (21:31)
[2025-07-09] MEDS: DIPHENHYDRAMINE HCL INJ 50 MG/ML VIAL IV PRN (21:32)
[2025-07-10] VITALS (8 sets, daily range): BP systolic 145–177; BP diastolic 79–87; PULSE 90–105; RESP 17–20; TEMP 97.1–98.9; O2SAT 97–100
[2025-07-10] MEDS ORDERED: GADOBENATE DIMEGLUMINE 1 ML IV ONE (10:04)
[2025-07-10] MEDS: HUM PROTHROMBIN CPLX(PCC)4FACT 500 UNIT VIAL IV ONE (12:25)
[2025-07-10] MEDS ORDERED: FENTANYL CITRATE/PF 100MCG/2 ML INJ ONE (14:13)
[2025-07-10] MEDS ORDERED: MIDAZOLAM HCL 2 MG/2 ML VIAL ONE (14:13)
[2025-07-10] MEDS ORDERED: LIDOCAINE HCL 2% LOCAL INJ 5 ML SDV VIAL INJ ONE (14:14)
[2025-07-10] MEDS ORDERED: ROCURONIUM BROMIDE 1 ML IV ONE (14:14)
[2025-07-10] MEDS ORDERED: PROPOFOL IV EMULSION 10 MG/ML 20 ML VIAL ONE (14:14)
[2025-07-10] MEDS ORDERED: SODIUM CHLORIDE 0.9% INJ 10 ML VIAL ONE (15:02)
[2025-07-10] MEDS ORDERED: SUCCINYLCHOLINE CHLORIDE 20 MG/ML 10ML VIAL ONE (15:15)
[2025-07-10] MEDS ORDERED: HYDROMORPHONE 2MG/ML ONE (15:24)
[2025-07-10] MEDS ORDERED: DEXAMETHASONE SOD PHOS INJ 4 MG/ML SDV ONE (15:25)
[2025-07-10] MEDS ORDERED: ONDANSETRON HCL INJ 2MG/ML 2ML 2 MG/ML VIAL ONE (15:25)
[2025-07-10] MEDS ORDERED: PHYTONADIONE 10 MG/ML AMP IV ONE (15:30)
[2025-07-10] MEDS ORDERED: SUGAMMADEX SODIUM 200 MG/2 ML VIAL IV ONE ×2 (16:18→16:37)
[2025-07-10] MEDS ORDERED: SEVOFLURANE INHAL SOLN 250 ML PEN BTL ONE (16:25)
[2025-07-10] MEDS ORDERED: ACETAMINOPHEN 1000 MG/100 ML 100 ML IV ONE (16:25)
[2025-07-10] MEDS ORDERED: PROMETHAZINE HCL (IM) 25 MG/ML VIAL IM PRN (16:45)
[2025-07-10] MEDS ORDERED: Morphine 4mg INJECTION 4 MG/ML INJ IV PRN (16:45)
[2025-07-10] MEDS ORDERED: MAGNESIUM/ALUMINUM/SIMETHICONE 30 ML UDC PO PRN (16:45)
[2025-07-10] MEDS: ONDANSETRON HCL INJ 2MG/ML 2ML 2 MG/ML VIAL IV PRN (16:53)
[2025-07-10] MEDS: METOCLOPRAMIDE HCL 10 MG/2ML VIAL ONE (16:53)
[2025-07-10] MEDS: LACTATED RINGER'S 1,000 ML IV SCH (19:02)
[2025-07-10] MEDS: SCOPOLAMINE 1 MG PATCH ONE (19:03)
[2025-07-10] MEDS: SODIUM CHLORIDE 0.9% 250ML 250 ML ONE (19:03)
[2025-07-10] MEDS: PHYTONADIONE 10MG/ML INJ 10 MG in Sodium Chloride 0.9% 50ML 50 ML IV ONE (19:04)
[2025-07-10] MEDS ORDERED: ZOLPIDEM TARTRATE 5 MG TAB PO PRN (21:00)
[2025-07-10] MEDS: OXYCODONE/ACETAMINOPHEN 5-325 1 EACH TABLET PO PRN (21:01)
[2025-07-10] MEDS: HYDROMORPHONE 1MG/1ML INJ IV PRN (22:55)
[2025-07-11] MEDS: ACETAMINOPHEN 325 MG TAB PO PRN (04:34)
[2025-07-11 05:10] LABS: INR 0.96
[2025-07-11 05:15] LABS: EST GLOMERULAR FILTRATION RATE 95.0 ML/MIN (>=60)
[2025-07-11 10:26] LABS: PHOSPHORUS 2.7 MG/DL (2.3-4.7)
[2025-07-11] MEDS: POTASSIUM CHLORIDE 10MEQ EA PO ONE (12:00)
[2025-07-11 13:16] VITALS: BP 163/82; PULSE 113; RESP 20; TEMP 97.9; O2SAT 95
[2025-07-11] MEDS: ENOXAPARIN SOD INJ 60 MG/0.6 ML SYR SC SCH (17:18)
[2025-07-11 19:09] VITALS: BP 158/74; PULSE 103; RESP 20; TEMP 97.7; O2SAT 96
[2025-07-11 20:25] VITALS: BP 148/80; PULSE 105; RESP 18; TEMP 97.2; O2SAT 94
[2025-07-11 21:00] VITALS: BP 148/80; PULSE 105; RESP 18; TEMP 97.2; O2SAT 94
[2025-07-12] VITALS: BP 165/82; PULSE 98; RESP 18; TEMP 97.8; O2SAT 97
[2025-07-12 06:28] VITALS: BP 162/81; PULSE 89; RESP 20; TEMP 99.1; O2SAT 96
[2025-07-12 07:05] LABS: BASOPHILS % 0.4 % (0.0-1.0); EOSINOPHILS % 0.2 % (0.0-6.0); LYMPHOCYTES % 12.2 % (18.0-39.1); MONOCYTES % 13.5 % (4.4-11.3); NEUTROPHILS % 73.0 % (38.7-80.0); RED CELL DISTRIBUTION WIDTH 14.8 % (11.7-14.4)
[2025-07-12 07:37] LABS: EST GLOMERULAR FILTRATION RATE 100.0 ML/MIN (>=60)
[2025-07-12] MEDS: POTASSIUM CHLORIDE 20 MEQ TAB CR PO ONE (09:25)
[2025-07-12] MEDS: CARISOPRODOL 350 MG TAB PO PRN (09:29)
[2025-07-12] MEDS: POTASSIUM CHLORIDE 10MEQ/100ML 100 ML IV SCH (09:30)
[2025-07-12] MEDS: HYDROCODONE/APAP 10MG-325MG TAB PO PRN (09:40)
[2025-07-12] MEDS: SODIUM CHLORIDE 0.9% 250ML 250 ML ONE (09:54)
[2025-07-12 12:56] VITALS: BP 166/108; PULSE 103; RESP 20; TEMP 98.1; O2SAT 98
[2025-07-12 18:57] VITALS: BP 138/67; PULSE 98; RESP 20; TEMP 98.4; O2SAT 98
[2025-07-12 20:00] VITALS: BP 139/96; PULSE 81; RESP 20; TEMP 98.7; O2SAT 97
[2025-07-12 20:04] VITALS: PULSE 86; RESP 18; O2SAT 98
[2025-07-13 04:00] VITALS: BP 141/78; PULSE 79; RESP 17; TEMP 98.1; O2SAT 97
[2025-07-13 07:25] VITALS: PULSE 82; RESP 18; O2SAT 97
[2025-07-13 08:00] VITALS: BP 121/75; PULSE 97; RESP 19; TEMP 98.4; O2SAT 96
[2025-07-13 12:36] VITALS: BP 138/88; PULSE 87; RESP 21; TEMP 98.7; O2SAT 98
[2025-07-13 13:59] VITALS: PULSE 85; RESP 18; O2SAT 96
[2025-07-13 16:00] VITALS: BP 149/91; PULSE 97; RESP 19; TEMP 98.8; O2SAT 98
[2025-07-15 03:14] LABS: HEPATITIS A ANTIBODY IGM (P) Negative; HEPATITIS B CORE IGM (P) Negative; HEPATITIS B SURFACE AG (P) Negative
== END 2025-07-13 17:45 | DRG 518 ==
LOC: ER 17:05 → ERHOLD 20:55 → MED/SURG2 22:14
PROVIDERS: ADMIT Internal Medicine; ATTEND Internal Medicine
PROC: B548ZZA Ultrasonography of Superior Vena Cava, Guidance (ICD-10-PCS; 2025-07-10)
PROC: 0SB20ZZ Excision of Lumbar Vertebral Disc, Open Approach (ICD-10-PCS; 2025-07-10)
PROC: 01NB0ZZ Release Lumbar Nerve, Open Approach (ICD-10-PCS; 2025-07-10)
PROC: 01NB0ZZ Release Lumbar Nerve, Open Approach (ICD-10-PCS; 2025-07-10)
PROC: 02HV33Z Insertion of Infusion Device into Superior Vena Cava, Percutaneous Approach (ICD-10-PCS; principal; 2025-07-10 15:10)
DX: M51.362 Other intervertebral disc degeneration, lumbar region with discogenic back pain and lower extremity pain (principal); G06.1 Intraspinal abscess and granuloma; S32.020A Wedge compression fracture of second lumbar vertebra, initial encounter for closed fracture; M46.46 Discitis, unspecified, lumbar region; M47.896 Other spondylosis, lumbar region; M48.061 Spinal stenosis, lumbar region without neurogenic claudication; M47.898 Other spondylosis, sacral and sacrococcygeal region; I11.0 Hypertensive heart disease with heart failure; I50.9 Heart failure, unspecified; E87.6 Hypokalemia; S80.11XA Contusion of right lower leg, initial encounter; S80.12XA Contusion of left lower leg, initial encounter; K21.9 Gastro-esophageal reflux disease without esophagitis; K44.9 Diaphragmatic hernia without obstruction or gangrene; E78.5 Hyperlipidemia, unspecified; R53.1 Weakness; G89.29 Other chronic pain; N20.0 Calculus of kidney; R32 Unspecified urinary incontinence; K57.30 Diverticulosis of large intestine without perforation or abscess without bleeding; K76.0 Fatty (change of) liver, not elsewhere classified; R74.01 Elevation of levels of liver transaminase levels; B02.9 Zoster without complications; M16.11 Unilateral primary osteoarthritis, right hip; Z95.828 Presence of other vascular implants and grafts; R62.7 Adult failure to thrive; Z68.36 Body mass index [BMI] 36.0-36.9, adult; E66.01 Morbid (severe) obesity due to excess calories; Z71.3 Dietary counseling and surveillance; Z87.440 Personal history of urinary (tract) infections; W18.2XXA Fall in (into) shower or empty bathtub, initial encounter; Y93.E1 Activity, personal bathing and showering; Y92.002 Bathroom of unspecified non-institutional (private) residence as the place of occurrence of the external cause; Z86.718 Personal history of other venous thrombosis and embolism; Z86.711 Personal history of pulmonary embolism; Z79.01 Long term (current) use of anticoagulants; Z79.52 Long term (current) use of systemic steroids
CPT/HCPCS: 36415; 36569; 70450; 71045; 72020; 72125; 72148; 72149; 72156; 72195; 74176; 76705; 80048; 80053; 80202; 81001; 82550; 83735; 84100; 84484; 85025; 85610; 85730; 86140; 86850; 86900; 87040; 87071; 87075; 87086; 87205; 88304; 88311; 93005; 94799; 99284; J0330; J0360; J0692; J1100; J1171; J1200; J1650; J2003; J2250; J2270; J2405; J2470; J2765; J3373; J3430; J3480; J7030; J7040; J7050; J7512